=== PATIENT | female | born 1975 | race Caucasian/White ===

== ENCOUNTER 2019-10-29 10:32 | Emergency (ER) | payer OTHER, SELFPAY ==
[2019-10-29 11:00] VITALS: BP 102/69; PULSE 109; RESP 16; TEMP 36.7; O2SAT 95
--- NOTE | 2019-10-29 11:14 | ED.URI ---
HPI - URI/Sore Throat General Chief Complaint: Upper Respiratory Infection Stated Complaint: fever aches Time Seen by Provider: 10/29/19 11:14 Source: patient and RN notes reviewed History of Present Illness HPI Narrative: Patient is a 44-year-old female that presents the urgent care with complaints of fever, body aches, chills, postnasal drainage, congestion, cough without dyspnea. Patient states that started approximately 4 days ago and she has been using ibuprofen, Tylenol, NyQuil, Sudafed. Denies of any vomiting or abdominal pain. No other acute complaints. No acute distress noted. Patient aware the plan of care. Related Data Home Medications Medication Instructions Recorded Confirmed No Home Medications 10/29/19 10/29/19 Allergies Allergy/AdvReac Type Severity Reaction Status Date / Time No Known Allergies Allergy Verified 10/29/19 11:11 Review of Systems Review of Systems: Narrative: CONSTITUTIONAL: Reports a fever and chills EYES: Denies visual changes, redness, or discharge. ENT: Reports of sinus congestion, postnasal drainage CARDIOVASCULAR: Denies chest pain, palpitations, or edema. RESPIRATORY: Reports of cough without dyspnea GASTROINTESTINAL: Denies abdominal pain, nausea, vomiting, or diarrhea. GENITOURINARY: Denies dysuria or hematuria. SKIN: Denies rash or itching. MUSCULOSKELETAL: Denies back pain, joint pain; reports of body aches NEUROLOGIC: Denies headache, numbness, or weakness. All other systems reviewed are negative, except as documented in HPI. PMFSH Comments At the time of my signature, I reviewed and agree with the nursing past medical, surgical, social, and family history. There is no relevant family history pertinent to the patient complaint. Exam Narrative: Exam Narrative: GENERAL: This is a well-nourished, well-developed patient, appears slightly fatigued HEAD: normocephalic, atraumatic. EYES: PERRL. Sclera clear/white. Vision is grossly intact. EARS: External ears normal, auditory canals clear and without drainage, TMs normal without perforation. Hearing grossly intact. NOSE: External nose normal with no obvious nasal discharge, bilateral erythemic nares with clear THROAT: Mucous membranes moist, posterior pharynx clear. Mild postnasal drainage NECK: Neck supple, non-tender without lymphadenopathy CARDIOVASCULAR: Regular rate and rhythm without murmurs, gallops, or rubs. RESPIRATORY: Clear to auscultation. Breath sounds equal bilaterally. No wheezes, rales, or rhonchi. SKIN: warm, intact with no suspicious lesions or rash, good texture and turgor. NEURO: awake, alert, and oriented to person, place and time. There were no obvious focal neurologic abnormalities. EXTREMITIES: No clubbing, cyanosis, or edema. Course Vital Signs Vital signs: Vital Signs Temperature 98.1 F 10/29/19 11:00 Pulse Rate 109 H 10/29/19 11:00 Respiratory Rate 16 10/29/19 11:00 Blood Pressure 102/69 10/29/19 11:00 Pulse Oximetry 95 10/29/19 11:00 Temperature 98.1 F 10/29/19 11:00 Pulse Rate 109 H 10/29/19 11:00 Respiratory Rate 16 10/29/19 11:00 Blood Pressure 102/69 10/29/19 11:00 Pulse Oximetry 95 10/29/19 11:00 Reviewed MDM - URI/Sore Throat MDM Narrative Medical decision making narrative: Reviewed lab results with the patient she is aware that she is positive for influenza A. Treat symptoms with [id number]-[id number] medication such as Robitussin/Delsym for cough, Claritin for allergy-like symptoms, Flonase for nasal congestion, Tylenol/Motrin for fever/body aches. Increase fluids, especially water and rest. Use a humidifier. Be aware of symptoms of dehydration such as lethargy, confusion, increased weakness, dry lips, dry eyes. Follow-up with PCP within 2-5 days or for worsening symptoms or failure to improve. Differential Diagnosis Differential diagnosis: Likely upper respiratory infection, otitis media, sinusitis, viral infection, bronchitis and influenza Lab Data
== END 2019-10-29 11:25 | disposition home or self-care (01) ==
PROVIDERS: Emergency Provider Nurse Practitioner Family; PCP Family Medicine
DX: J10.1 Influenza due to other identified influenza virus with other respiratory manifestations (principal)
CPT/HCPCS: 87804; 99212; G0463

== ENCOUNTER 2019-11-17 13:38 | Outpatient (CLI) | payer OTHER, SELFPAY ==
--- NOTE | ~2019-11-17 | MM_ITS ---
EXAMINATION: MM screening dez BI w tierra HISTORY: Screening mammogram TECHNIQUE: Craniocaudal and mediolateral oblique 3-D tomosynthesis images were obtained and synthetic 2-D images were generated. CAD analysis was submitted and interpreted. COMPARISON: 07/26/2017 bilateral digital screening mammogram BREAST PARENCHYMAL COMPOSITION: The breasts are almost entirely fatty. FINDINGS: There is an approximately 3 x 5.5 mm circumscribed opacity in the mid and lower outer left breast. There is a possible radiolucent hilus. Diagnostic left mammogram and left breast ultrasound e xamination are recommended. Otherwise there is no evidence of suspicious mass, calcification, or architectural distortion to sugg est malignancy in either breast. There has been no other suspicious interval change. IMPRESSION: 3 x 5.5 mm circumscribed opacity in the outer mid to lower left breast; diagnostic left mammogram and left breast ultrasound examination are recommended BI-RADS Category 0: Incomplete: Needs additional imaging evaluation. Reviewed, dictated and finalized at location A. URY PURIFIER IMPRESSION: 3 x 5.5 mm circumscribed opacity in the outer mid to lower left breast; diagnos tic left mammogram and left breast ultrasound examination are recommended BI-RADS Category 0: Incomplete: Needs additional imaging evaluation.
== END 2019-11-17 13:39 | disposition home or self-care (01) ==
LOC: ANHIMG 13:40
PROVIDERS: PCP Family Medicine; Visit Provider Obstetrics & Gynecology
DX: Z12.31 Encounter for screening mammogram for malignant neoplasm of breast (principal); R92.8 Other abnormal and inconclusive findings on diagnostic imaging of breast
CPT/HCPCS: 77063; 77067

== ENCOUNTER 2019-12-09 11:22 | Outpatient (CLI) | payer OTHER, SELFPAY ==
--- NOTE | ~2019-12-09 | MMUS_ITS ---
EXAMINATION: MM diagnostic mammo unilat LT, US breast LT limited HISTORY: 3 x 5.5 mm circumscribed opacity in outer mid to lower left breast on screening mammogram of 11/17/2019 TECHNIQUE: Additional 3-D tomosynthesis images of the left breast were performed and synthetic 2-D im ages were generated. CAD analysis was submitted and interpreted. High resolution targeted left mid ou ter breast ultrasound was performed. COMPARISON: 11/17/2019 bilateral digital screening mammogram FINDINGS: MAMMOGRAPHIC FINDINGS: Again confirmed is an approximately 3 x 5 mm incompletely circumscribed opacity in the outer mid left breast at approximately 3:00 irregular junction of the anterior middle thirds of the left breast. ULTRASOUND: At 3:00 position there is an approximately 3.2 x 4.7 mm mildly irregular in completely circumscribed complex lesion. No internal vascularity or shadowing is noted. Ultrasound-guided biopsy is recommende d. IMPRESSION: 1. Approximately 3 x 5 mm incompletely circumscribed mildly irregular mass at 3:00 2. Ultrasound-guided biopsy is recommended. BI-RADS category 4, suspicious findings. Dr. Aguiar telephoned the report and ultrasound guided biopsy recommendation to Jenni Armijo on 12/09/2019 at 1322 hours. Reviewed, dictated and finalized at location A. IMPRESSION: 1. Approximately 3 x 5 mm incompletely circumscribed mildly irregular mass at 3 :00 2. Ultrasound-guided biopsy is recommended. BI-RADS category 4, suspicious findings. Dr. Aguiar telephoned the report and ultrasound guided biopsy recommendation to Jenni Quevedo on 12/09/2019 at 1322 hours.
== END 2019-12-09 11:23 | disposition home or self-care (01) ==
LOC: ANHIMG 11:25
PROVIDERS: PCP Family Medicine; Visit Provider Obstetrics & Gynecology
DX: R92.8 Other abnormal and inconclusive findings on diagnostic imaging of breast (principal)
CPT/HCPCS: 76642; 77065

== ENCOUNTER 2020-04-19 09:44 | Outpatient (CLI) | payer OTHER, SELFPAY ==
[2020-04-19 11:40] LABS: Iron 97 ug/dL (37-170)
[2020-04-19 11:53] LABS: Percent Iron Saturation 30 % (20-50)
== END 2020-04-19 09:45 | disposition home or self-care (01) ==
LOC: ANHLAB 09:49
PROVIDERS: PCP Family Medicine; Visit Provider Internal Medicine Hematology & Oncology
DX: D50.0 Iron deficiency anemia secondary to blood loss (chronic) (principal)
CPT/HCPCS: 36415; 82728; 83540; 83550

== ENCOUNTER 2020-12-22 15:26 | Outpatient (CLI) | payer OTHER, SELFPAY ==
--- NOTE | ~2020-12-22 | MM_ITS ---
EXAMINATION: MM screening dez BI w tierra HISTORY: Screening mammogram TECHNIQUE: Craniocaudal and mediolateral oblique 3-D tomosynthesis images were obtained and synthetic 2-D images were generated. CAD analysis was submitted and interpreted. COMPARISON: 12/09/2019 diagnostic left mammogram and limited left breast ultrasound 11/17/2019 bilateral digital screening mammogram BREAST PARENCHYMAL COMPOSITION: There are scattered areas of fibroglandular density. FINDINGS: There is a biopsy marker in the left; history of prior left benign breast biopsy. There is no evidence of suspicious mass, calcification, or architectural distortion to suggest malignancy in e ither breast. There has been no suspicious interval change. IMPRESSION: 1. No mammographic evidence of malignancy. 2. Recommend routine screening mammography in one year. BI-RADS Category 1: Negative Reviewed, dictated and finalized at location A.
== END 2020-12-22 15:27 | disposition home or self-care (01) ==
LOC: ANHIMG 15:29
PROVIDERS: PCP Family Medicine; Visit Provider Obstetrics & Gynecology
DX: Z12.31 Encounter for screening mammogram for malignant neoplasm of breast (principal)
CPT/HCPCS: 77063; 77067

== ENCOUNTER → 2021-08-03 02:22 | Outpatient (CLI) | payer OTHER, SELFPAY ==
[2021-08-03 18:47] LABS: SARS-CoV-2 RNA PCR Negative
== END ==
PROVIDERS: PCP Family Medicine; Visit Provider Internal Medicine Gastroenterology
DX: Z01.812 Encounter for preprocedural laboratory examination (principal); Z20.822 Contact with and (suspected) exposure to COVID-19
CPT/HCPCS: C9803; U0003; U0005

== ENCOUNTER 2021-08-05 01:56 | Day surgery (SDC) | payer OTHER, SELFPAY ==
[2021-07-25 15:06] VITALS: BMI 24.7
--- NOTE | 2021-08-04 11:54 | PM.HPGS ---
History of Present Illness History of Present Illness Consent: Risks, benefits, and alternatives have been discussed and questions answered. Patient agrees to proceed with procedure. Chief complaint: GERD, neoplasm screening Narrative: Jennifer Lynch is a 46 year old female referred for colon cancer screening and investigation of persistent acid reflux symptoms. Five years ago she was being investigated for iron deficiency anemia. She was told that she had reflux and needed to be on medication but she never did take it because she has concerns about anti reflux medications causing a Alzheimer's disease. Her main symptoms that she gets heartburn. She denies dysphagia weight loss or vomiting. She has irregular bowel movements. Sometimes they are loose and sometimes they are hard or difficult to expel. When she had a colonoscopy 5 years ago she had a polyp removed Review of Systems Review of Systems: All systems reviewed & are unremarkable except as noted in HPI and below [facility] Social History Social History Smoking status: Current every day smoker Tobacco type: cigarettes Alcohol intake: current Drinks per week: 1 Substance use: never Substance use type: does not use Living arrangements: with family Spiritual care concerns: No Meds Home Medications and Allergies Home Medications Medication Instructions Recorded Confirmed Type No Home Medications 10/29/19 08/05/21 History Allergies Allergy/AdvReac Type Severity Reaction Status Date / Time No Known Allergies Allergy Verified 08/05/21 06:49 Exam Const: General: alert Orientation/consciousness: patient oriented x3 Resp: Auscultation: clear to auscultation bilaterally Cardio: Rhythm: regular rhythm GI: GI Palp: Yes Soft to palpation and No Tenderness to palpation present (GI) Neuro: General: patient oriented x3 Assessment and Plan Assessment and plan (1) GERD (gastroesophageal reflux disease): Code(s): K21.9 - Gastro-esophageal reflux disease without esophagitis Status: Acute Assessment and Plan: EGD with possible biopsy or dilatation or cautery. (2) Colon cancer screening: Code(s): Z12.11 - Encounter for screening for malignant neoplasm of colon Status: Acute Assessment and Plan: Colonoscopy with possible biopsy or polypectomy or cautery or injection of substances.
[2021-08-05 06:49] VITALS: BP 131/85; PULSE 74; RESP 16; TEMP 36.1; O2SAT 98; BMI 24.5
[2021-08-05] MEDS: LACTATED RINGERS 1,000 ML 150 ML IV CONT (06:53)
--- NOTE | 2021-08-05 07:43 | WPDANESEPPF ---
Anes - Initial Pre Proc Eval Procedure: Operation Date: 08/05/21 08:00 Proposed Procedures p Esophagogastroduodenoscopy & Screening Colonoscopy - José Griffin MD Date/Time: 08/05/21 07:43 Surgeon: José Griffin MD Pre Op Diagnosis: GERD, neoplasm screening Patient Data Age: 46 Gender: F Height: 1.57 m Weight: 61 kg Last Vital Signs Temp 97 F L 08/05/21 06:49 Pulse 74 08/05/21 06:49 Resp 16 08/05/21 06:49 BP 131/85 08/05/21 06:49 Pulse Ox 98 08/05/21 06:49 Allergies Allergy/AdvReac Type Severity Reaction Status Date / Time No Known Allergies Allergy Verified 08/05/21 06:49 Home Medications Medication Instructions Recorded Confirmed Type No Home Medications 10/29/19 08/05/21 History Patient hx anesthesia problems: none Family hx anesthesia problems: none Results Review: All pre-operative results and documents have been reviewed as part of the pre-operative evaluation. [facility] Past Medical History Medical History (Updated 08/05/21 @ 07:40 by Atif Byrd MD) Anemia Anxiety Asthma Depression Social History Social History Smoking status: Current every day smoker Tobacco type: cigarettes Alcohol intake: current Drinks per week: 1 Substance use: never Substance use type: does not use Living arrangements: with family Spiritual care concerns: No Anes - Eval Final PreProcedure Day of Procedure 08/05/21 07:43 Patient weight: normal Heart: regular rate and rhythm Lungs: clear to auscultation Airway: Mallampati scale class II Neurological: alert and oriented Last oral intake: >/= 8 hours ASA classification: II Emergent: no Anesthetic plan: proceed Anesthesia type and monitoring: general GIVS and standard monitoring Results Review: All pre-operative results and documents have been reviewed as part of the pre-operative evaluation. Informed Consent: The patient's anesthetic plan and its attendant risks and benefits were discussed with the patient/family/POA. Questions were solicited and answers provided to the satisfaction of the patient/family/POA.
--- NOTE | 2021-08-05 08:13 | SUR.OPER ---
EGD ended at 804. Colonoscopy started at 811.
[2021-08-05] MEDS: SIMETHICONE ORAL SUSPENSION 20 MG/0.3 ML 30 ML BOTTLE 0.6 ML IRRIGATION (08:16)
[2021-08-05 08:27] VITALS: BP 93/66; PULSE 73; RESP 19; O2SAT 100
[2021-08-05 08:37] VITALS: BP 108/74; PULSE 68; RESP 17; O2SAT 97
[2021-08-05 08:47] VITALS: BP 124/70; PULSE 62; RESP 21; O2SAT 100
== END 2021-08-05 09:00 | disposition home or self-care (01) ==
PROVIDERS: PCP Family Medicine; Visit Provider Internal Medicine Gastroenterology
PROC: 0DJ08ZZ Inspection of Upper Intestinal Tract, Via Natural or Artificial Opening Endoscopic (ICD-10-PCS; CPT 43235; principal; 2021-08-05 08:00)
DX: Z12.11 Encounter for screening for malignant neoplasm of colon (principal); K21.9 Gastro-esophageal reflux disease without esophagitis; D64.9 Anemia, unspecified; F41.8 Other specified anxiety disorders; J45.909 Unspecified asthma, uncomplicated; F17.210 Nicotine dependence, cigarettes, uncomplicated
CPT/HCPCS: 43239; 45378; 87081; 88305; J2704; J7120

== ENCOUNTER 2022-04-11 09:37 | Outpatient (CLI) | payer OTHER, SELFPAY ==
--- NOTE | ~2022-04-11 | MM_ITS ---
EXAMINATION: MM screening dez BI w tierra HISTORY: Screening mammogram TECHNIQUE: Craniocaudal and mediolateral oblique 3-D tomosynthesis images were obtained and synthetic 2-D images were generated. CAD analysis was submitted and interpreted. COMPARISON: 12/22/2020 bilateral screening mammogram 12/05/2019 diagnostic left mammogram and limited left breast ultrasound 11/17/2019, 07/26/2017 bilateral screening mammogram examinations BREAST PARENCHYMAL COMPOSITION: There are scattered areas of fibroglandular density. A FINDINGS: There are 2 biopsy markers on the left; history of 2 prior benign left breast biopsies. The re is no evidence of suspicious mass, calcification, or architectural distortion to suggest malignanc y in either breast. There has been no suspicious interval change. IMPRESSION: 1. No mammographic evidence of malignancy. 2. Recommend routine screening mammography in one year. BI-RADS Category 1: Negative Reviewed, dictated and finalized at location A.
== END 2022-04-11 09:38 | disposition home or self-care (01) ==
PROVIDERS: PCP Family Medicine; Visit Provider Obstetrics & Gynecology
DX: Z12.31 Encounter for screening mammogram for malignant neoplasm of breast (principal)
CPT/HCPCS: 77063; 77067

== ENCOUNTER 2022-08-08 08:29 | Outpatient (CLI) | payer OTHER, SELFPAY ==
--- NOTE | ~2022-08-08 | XR_ITS ---
EXAMINATION: XR UGIAC w barium swallow DATE: 08/08/2022 09:16 INDICATION: Gastroesophageal reflux disease without esophagitis. TECHNIQUE: The patient drank thick barium, gas-producing crystals, and thin barium. A total of 1603 f luoroscopic images of the hypopharynx, esophagus, stomach and proximal small bowel were obtained. Flu oroscopy exposure time was 2.7 minutes. COMPARISON: None. FINDINGS: There is mass effect with nodular mucosal contour at the anterior margin of the vallecula likely rela jaz to lingual tonsils. The pharynx is otherwise normal. The esophagus is normal without mass or stri cture. There is decreased esophageal motility with significant weakening of the primary peristaltic w ave in the upper thoracic esophagus resulting in break up of the contrast bolus. There is poor cleara nce of contrast from esophagus with secondary peristalsis resulting in some pooling of contrast in th e esophagus in the prone position. There is no hiatal hernia. There was no gastroesophageal reflux wi th provocative maneuvers. The stomach and proximal small bowel are normal. IMPRESSION: 1. Mass effect with nodular mucosal contour at the anterior margin of the vallecula which given locat ion likely represents the lingual tonsils. Could consider laryngoscopy for direct visualization. 2. Mild esophageal dysmotility with weakening and poor progression of primary and secondary peristals is beyond the proximal thoracic esophagus. Reviewed, dictated and finalized at location A. DIPPER IMPRESSION: 1. Mass effect with nodular mucosal contour at the anterior margin of the roy cula which given location likely represents the lingual tonsils. Could consider laryngoscopy for direct visualization. 2. Mild esophageal dysmotility with weakening and poor progression of primary a nd secondary peristalsis beyond the proximal thoracic esophagus.
== END 2022-08-08 08:30 | disposition home or self-care (01) ==
LOC: ANHIMG 08:32
PROVIDERS: PCP Family Medicine; Visit Provider Nurse Practitioner Family
DX: K21.9 Gastro-esophageal reflux disease without esophagitis (principal)
CPT/HCPCS: 74246

== ENCOUNTER 2023-03-30 08:52 | Outpatient (CLI) | payer OTHER, SELFPAY ==
--- NOTE | ~2023-03-30 | US_ITS ---
Pelvic ultrasound. Clinical History: Pelvic pain Technique: Realtime transabdominal and transvaginal scanning of the pelvis was performed. Color flow Doppler and Doppler spectral analysis were performed. Findings: The uterus is anteverted. The endometrial stripe is poorly delineated. No focal mass is id entified. The right ovary measures 2.3 x 1.4 x 1.1 cm. No significant right ovarian or adnexal mass is seen. The left ovary measures 2.2 x 1.8 x 1.1 cm. No significant left ovarian or adnexal mass is seen. There is no evidence of free fluid in the cul de sac. Impression: No significant abnormality seen. Endometrial stripe is poorly delineated. Reviewed, dictated and finalized at [facility]. Impression: No significant abnormality seen. Endometrial stripe is poorly delineated.
== END 2023-03-30 08:53 | disposition home or self-care (01) ==
PROVIDERS: PCP Family Medicine; Visit Provider Obstetrics & Gynecology
DX: R10.2 Pelvic and perineal pain (principal)
CPT/HCPCS: 76830; 76856

== ENCOUNTER 2023-04-13 10:28 | Outpatient (CLI) | payer OTHER, SELFPAY ==
--- NOTE | ~2023-04-13 | MM_ITS ---
EXAMINATION: MM screening [facility] BI w tierra HISTORY: Screening mammogram TECHNIQUE: Craniocaudal and mediolateral oblique 3-D tomosynthesis images were obtained and synthetic 2-D images were generated. CAD analysis was submitted and interpreted. COMPARISON: 04/11/2022, 12/22/2020, 12/09/2019, 11/17/2019 BREAST PARENCHYMAL COMPOSITION: There are scattered areas of fibroglandular density. FINDINGS: No suspicious mass, calcification, or architectural distortion are identified in either wade ast to suggest malignancy. There has been no suspicious interval change. IMPRESSION: 1. No mammographic evidence of malignancy. 2. Recommend routine screening mammography in one year. BI-RADS Category 1: Negative Reviewed, dictated and finalized at location A.
== END 2023-04-13 10:29 | disposition home or self-care (01) ==
PROVIDERS: PCP Family Medicine; Visit Provider Obstetrics & Gynecology
DX: Z12.31 Encounter for screening mammogram for malignant neoplasm of breast (principal)
CPT/HCPCS: 77063; 77067

== ENCOUNTER 2023-10-09 12:42 | Outpatient (CLI) | payer OTHER, SELFPAY ==
[2023-10-09 13:16] LABS: Eosinophils Absolute Auto 0.2 K/mm3 (0-0.3); Eosinophils Percent Auto 4.8 % (0-4.4); Hemoglobin 12.7 g/dL (12.0-15.0); Lymphocytes Absolute Auto 1.45 K/mm3 (0.9-3.2); Lymphocytes Percent Auto 34.9 % (18.3-44.2); Mean Corpuscular HGB Conc 33.4 g/dl (32-36); Mean Corpuscular Hemoglobin 29.5 pg (26-34); Mean Corpuscular Volume 88.2 fl (80-100); Mean Platelet Volume 9.7 fl (7.4-10.4); Monocytes Absolute Auto 0.4 K/mm3 (0.1-0.6); Monocytes Percent Auto 9.4 % (2.6-8.5); Neutrophils Absolute Auto 2.1 K/mm3 (1.3-6.7); Neutrophils Percent Auto 49.9 % (45.5-73.1); Platelet Count Result 189 k/mm3 (150-375); Red Blood Count 4.31 M/mm3 (4.2-5.4); Red Cell Distribution Width 12.4 % (11.5-14.5); White Blood Count 4.2 K/mm3 (4.5-10.0)
== END 2023-10-09 12:43 | disposition home or self-care (01) ==
PROVIDERS: PCP Family Medicine; Referring Provider Internal Medicine Hematology & Oncology; Visit Provider Obstetrics & Gynecology
DX: N85.2 Hypertrophy of uterus (principal); N93.9 Abnormal uterine and vaginal bleeding, unspecified
CPT/HCPCS: 36415; 85025; 86850; 86900; 86901

== ENCOUNTER 2023-10-23 15:04 | Outpatient (CLI) | payer OTHER, SELFPAY ==
[2023-10-23 15:20] LABS: Basophils Percent Auto 0.7 % (0.2-1.2); Eosinophils Absolute Auto 0.1 K/mm3 (0-0.3); Eosinophils Percent Auto 2.3 % (0-4.4); Hematocrit 37.5 % (37.0-47.0); Hemoglobin 12.7 g/dL (12.0-15.0); Immature Granulocyte Absolute 0.01 K/mm3 (0.00-0.031); Immature Granulocyte Percent A 0.2 % (0-0.5); Lymphocytes Absolute Auto 1.31 K/mm3 (0.9-3.2); Lymphocytes Percent Auto 23.6 % (18.3-44.2); Mean Corpuscular HGB Conc 33.9 g/dl (32-36); Mean Corpuscular Hemoglobin 29.9 pg (26-34); Mean Corpuscular Volume 88.2 fl (80-100); Mean Platelet Volume 9.1 fl (7.4-10.4); Monocytes Absolute Auto 0.4 K/mm3 (0.1-0.6); Neutrophils Absolute Auto 3.7 K/mm3 (1.3-6.7); Neutrophils Percent Auto 66.2 % (45.5-73.1); Platelet Count Result 229 k/mm3 (150-375); Red Blood Count 4.25 M/mm3 (4.2-5.4); Red Cell Distribution Width 12.2 % (11.5-14.5); White Blood Count 5.5 K/mm3 (4.5-10.0)
[2023-10-23 16:27] LABS: Iron 91 ug/dL (37-170)
[2023-10-23 16:29] LABS: Alanine Aminotransferase 16 U/L (6-35); Albumin Level 4.2 g/dL (3.5-5.1); Alkaline Phosphatase 80 U/L (38-126); Anion Gap 4 mmol/L (8-16); Aspartate Amino Transferase 23 U/L (14-36); Bilirubin,Total 1.1 mg/dL (0.2-1.3); Blood Urea Nitrogen 17 mg/dL (7-17); Calcium 8.9 mg/dL (8.4-10.2); Carbon Dioxide 30 mmol/L (22-30); Chloride 103 mmol/L (98-107); Estimated Glomerular Filt Rate > 60; Glucose 94 mg/dL (65-110); Sodium 137 mmol/L (137-145)
[2023-10-23 16:41] LABS: Percent Iron Saturation 25 % (20-50)
[2023-10-23 17:02] LABS: Ferritin 8.61 ng/mL (6.24-137)
[2023-10-23 17:33] LABS: Folic Acid 17.9 ng/mL (2.76->20)
[2023-10-26 09:57] LABS: Methylmalonic Acid 544 nmol/L (87-318)
[2023-10-29 17:17] LABS: Soluble Transferrin Receptor 1.21 mg/L (0.76-1.76)
== END 2023-10-23 15:05 | disposition home or self-care (01) ==
LOC: ANHLAB 15:06
PROVIDERS: Nurse Practitioner Family; PCP Family Medicine; Visit Provider Internal Medicine Hematology & Oncology
DX: D50.0 Iron deficiency anemia secondary to blood loss (chronic) (principal)
CPT/HCPCS: 36415; 80053; 82607; 82728; 82746; 83540; 83550; 83921; 84238; 85025

== ENCOUNTER 2024-03-28 17:28 | Emergency (ER) | payer OTHER, SELFPAY ==
[2024-03-28 17:37] VITALS: BP 124/85; PULSE 97; RESP 16; TEMP 36.9; O2SAT 97
[2024-03-28 17:38] VITALS: BP 124/85; PULSE 97; RESP 16; TEMP 36.9; O2SAT 97
--- NOTE | 2024-03-28 17:40 | ED.URI ---
HPI - URI/Sore Throat General Chief Complaint: Upper Respiratory Infection Stated Complaint: Sore Throat Time Seen by Provider: 03/28/24 17:40 Source: patient Mode of arrival: ambulatory Limitations: no limitations History of Present Illness HPI Narrative: 48-year-old female presents with complaint of sore throat, nasal congestion, cough, fatigue and body aches for 2 days. Patient states she recently went on a trip with family and her sister and sister's daughter both positive for strep throat. Patient states she had antibiotic at home and has taken 2 doses of amoxicillin. All systems reviewed and negative except as noted above. Related Data Allergies Allergy/AdvReac Type Severity Reaction Status Date / Time No Known Allergies Allergy Verified 12/04/23 11:03 Review of Systems Review of Systems: CONSTITUTIONAL: Denies fever, chills, or sweats. Reports fatigue. EYES: Denies visual changes, redness, or discharge. ENT: Reports rhinorrhea, congestion, sore throat. Denies otalgia. CARDIOVASCULAR: Denies chest pain, palpitations, or edema. RESPIRATORY: Denies cough or dyspnea. GASTROINTESTINAL: Denies abdominal pain, nausea, vomiting, or diarrhea. GENITOURINARY: Denies dysuria or hematuria. SKIN: Denies rash or itching. MUSCULOSKELETAL: Denies back pain, joint pain. Reports myalgia. NEUROLOGIC: Reports headache. Denies numbness, or weakness. PSYCHIATRIC: Denies anxiety or depression. All other systems reviewed are negative, except as documented in HPI. [facility] Past Medical History Medical History (Updated 03/28/24 @ 18:16 by Claudia Hooker NP) ADHD (attention deficit hyperactivity disorder) Anemia infusions done Anxiety Asthma Depression Dysuria Encounter for screening examination for sexually transmitted disease Encounter for screening examination for sexually transmitted disease HSV-1 infection HSV-2 infection rx meds prn Screening mammogram, encounter for Screening mammogram, encounter for Thyroid nodule Vaginitis Surgical History Surgical History H/O LEEP 199710/29/13 History of endometrial ablation 07/03/19 hscope d&c and ablation History of laparoscopy 07/03/19 pelvic pain History of tonsillectomy Family History Family History Mother Hypothyroidism Intracranial aneurysm Daughter Hypothyroidism Pulmonic valve stenosis Social History Social History (Updated 12/04/23 @ 11:06 by Yamila Carmona [facility]) Smoking status: Never smoker Tobacco type: cigarettes Second hand tobacco smoke exposure: No Smoking end date: 10/18/22 Alcohol intake: current Drinks per week: 1 Alcohol use details: very rarely Substance use: current Substance use type: does not use Other substance usage details: CBD for pain Do You Feel Safe in your Home?: Yes Lack of Transportation: No Lack of Food: Never True Current Housing: I Have Housing Concerned About Future Housing: No Difficulty Paying Gas/Electric Bills: No Difficulty Paying for Meds: No Currently Unemployed: No Education: High School Diploma/GED Difficulty w/ Childcare or Family Care: No Living arrangements: alone Additional living arrangements comments: lives with daughter Occupation/Education: occupation Additional occupation/education comments: 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 There is no relevant family history pertinent to the presenting complaint. Exam Narrative: GENERAL: This is a well-nourished, well-developed patient, in no apparent distress.
[2024-03-28 18:09] LABS: EDINFLUASCREEN Negative; EDINFLUBSCREEN Negative; EDSTREPNEGPOS1 Presumptive Negative
== END 2024-03-28 18:22 | disposition home or self-care (01) ==
PROVIDERS: Emergency Provider Nurse Practitioner Family; PCP Nurse Practitioner Family
DX: J02.9 Acute pharyngitis, unspecified (principal); Z20.822 Contact with and (suspected) exposure to COVID-19; Z87.891 Personal history of nicotine dependence; J45.909 Unspecified asthma, uncomplicated
CPT/HCPCS: 87081; 87426; 87804; 87880; 99213; G0463

== ENCOUNTER 2024-05-14 15:27 | Outpatient (CLI) | payer OTHER, SELFPAY ==
--- NOTE | ~2024-05-14 | MM_ITS ---
EXAMINATION: MM screening dez BI w tierra HISTORY: Screening TECHNIQUE: Craniocaudal and mediolateral oblique 3-D tomosynthesis images were obtained and synthetic 2-D images were generated. CAD analysis was submitted and interpreted. COMPARISON: Comparison to multiple prior studies sequentially, with oldest reviewed study dated 05/2017. BREAST PARENCHYMAL COMPOSITION: Not Dense: The breasts are almost entirely fatty. FINDINGS: There is no evidence of suspicious mass, calcification, or architectural distortion to sugg est malignancy in either breast. There has been no suspicious interval change. IMPRESSION: 1. No mammographic evidence of malignancy. 2. Recommend routine screening mammography in one year. BI-RADS Category 1: Negative Reviewed, dictated and finalized at location B.
== END 2024-05-14 15:28 | disposition home or self-care (01) ==
LOC: ANHIMG 15:28
PROVIDERS: Visit Provider Obstetrics & Gynecology
DX: Z12.31 Encounter for screening mammogram for malignant neoplasm of breast (principal)
CPT/HCPCS: 77063; 77067

== ENCOUNTER 2025-05-26 16:24 | Outpatient (CLI) | payer OTHER, SELFPAY ==
--- NOTE | ~2025-05-26 | MM_ITS ---
EXAMINATION: MM screening dez BI w tierra HISTORY: Screening TECHNIQUE: Craniocaudal and mediolateral oblique 3-D tomosynthesis images were obtained and synthetic 2-D images were generated. CAD analysis was submitted and interpreted. COMPARISON: Comparison to multiple prior studies sequentially, with oldest reviewed study dated , 11/17/2019 BREAST PARENCHYMAL COMPOSITION: There are scattered areas of fibroglandular density. FINDINGS: There is no evidence of suspicious mass, calcification, or architectural distortion to suggest malignancy in either breast. IMPRESSION: 1. No mammographic evidence of malignancy. 2. Recommend routine screening mammography in one year. BI-RADS Category 1: Negative Reviewed, dictated and finalized at location C.
--- OUTSIDE RECORDS SUMMARY | 2025-05-26 15:00 | XMS_ITS | Encounter Summary ---
Author Organization [facility] Address [address] [place] [address] Phone Care Team Providers Care Soft Crab Shedder Name Role Phone Jemal Krueger DO Unavailable [phone] Roberta Kennedy DIGITAL CAMPAIGN MANAGER, FIELD TRAINING AGENT Unavailable Kecia Burkett DIGITAL CAMPAIGN MANAGER, FIELD TRAINING AGENT Unavailable Jonh Carr MD Unavailable Jonh Carr MD Unavailable Desirae Wolf MD Primary Care Provider [phone] Reason for Visit * Reason Comments Thyroid Problem Encounter Details Date Type Department Care Team (Late st Contact Info) Description 05/26/2025 3:00 PM CDT Office Visit [facility] - Endocrinology [facility] [address] [place] [address] Jonh Carr MD [address] [phone] Nodular goiter (Primary Dx); 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 Discharge Disposition: Discharged to home or Selfcare Social History Tobacco Use Types Packs/Day Years Used Date Smoking Tobacco: Former Cigarettes Q uit: 03/08/2000 Smokeless Tobacco: Never Alcohol Use Standard Drinks/Week Comments Yes 0 (1 standard drink = 0.6 oz pur e alcohol) Occassionally Comments No Sex and Gender Information Value Date Recorded Sex Assigned at Not on file Legal Sex Female 9:49 PM CDT Gender Identity Not on file Sexual Orientation Not on file 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 file Not on file Not on file documented as of this encounter Last Filed Vital Signs Vital Sign Reading Time Taken Comments Blood Pressure 120/76 05/26/2025 2:49 PM CDT Pulse 88 05/26/2025 2:49 PM CDT Temperature 36.3 C (97.4 F) 05/26/2025 2:49 PM CDT Respiratory Rate 19 05/26/2025 2:49 PM CDT Oxygen Saturation 94% 05/26/2025 2:49 PM CDT Inhaled Oxygen Concentration - - Weight 57.1 kg (125 lb 12.8 oz) 05/26/2025 2:49 PM CDT Height - - Body Mass Index 23.01 06/01/2023 10:15 AM CDT documented in this encounter Patient Instructions * Patient Instructions* Jonh Carr MD - 05/26/2025 3:00 PM CDT Please check thyroid function test Arrangement will be made for thyroid ultrasound in November or December 2025 Additional steps in management to be determined once result is available for review Follow up visit in December 2025 documented in this encounter Plan of Treatment Upcoming Encounters Date Type Department Care Team (Late st Contact Info) Description 12/24/2025 3:00 PM CDT Office Visit [facility] - Endocrinology - [place] [address] [place] [address] Jonh Carr MD [address] [address] Scheduled Orders Name Type Priority Associated Diagnoses Orde r Schedule THYROID STIMULATING HORMONE (TSH) Lab Routine Nodular goiter 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 Expected: 05/26/2025, Expires: 11/23/2025 THYROXINE (T4) FREE Lab Routine Nodular goiter 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 Expected: 05/26/2025, Expires: 11/23/2025 documented as of this encounter Visit Diagnoses Diagnosis Nodular goiter- Primary Unspecified nontoxic 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 documented in this encounter Care Teams Soft Crab Shedder Relationship Specialty Start Date End Date Desirae Wolf MD [facility] [place] [address] PCP - General Slide Fasteners Inspector 05/01/22 Jemal Krueger DO Gastroenterology 03/23/16 Roberta Mcmullen APRN, FIELD TRAINING AGENT Nurse Practitioner Advanced Practice Nurse 03/23/16 Kecia Burkett APRN, FIELD TRAINING AGENT Nurse Practitioner Advanced Practice Nurse 03/23/16 Jonh Carr MD [address] [address] [address] Consulting Physician Internal Medicine 06/30/16 Jonh Carr MD [address] [address] [phone] Consulting Physician Endocrinology 03/27/22 documented as of this encounter
--- OUTSIDE RECORDS SUMMARY | 2025-05-26 17:18 | XMS_ITS | Clinical Summary ---
Author Organization [facility] Address [address] [place] [address] Phone Care Team Providers Care Shrimp Header Name Role Phone Jemal Krueger DO Unavailable [phone] Roberta Mcmullen DIGITAL MEDIA SPECIALIST, SOFTWARE TEST SPECIALIST Unavailable [phone] Kecia Burkett DIGITAL MEDIA SPECIALIST, SOFTWARE TEST SPECIALIST Unavailable Jonh Carr MD Unavailable Jonh Carr MD Unavailable Desirae Wolf MD Primary Care Provider [phone] Allergies No known active allergies Medications ferrous sulfate 325 (65 Fe) MG Tablet Take 325 mg by mouth. 07/23/20 18 Active Escitalopram Oxalate 5 MG Tablet TK 1 T PO QD 3 11/12/19 19 Active acetaminophen (TYLENOL) 500 MG Tablet Take 500-1,000 mg by mouth. 12/04/19 20 Active albuterol (PROVENTIL, VENTOLIN) (2.5 MG/3ML) 0.083% Nebulizer Soln albuterol sulfate 2.5 mg/3 mL (0.083 %) solution for nebulization Active cyclobenzaprin e (FLEXERIL) 10 MG Tablet cyclobenzaprine 10 mg tablet Active ibuprofen (MOTRIN) 600 MG Tablet Take 600 mg by mouth. 12/04/19 20 Active ondansetron (ZOFRAN) 8 MG Tablet 01/26/20 23 Active Spacer/Aero-Ho lding Chambers (AEROCHAMBER PLUS-FLOW SIGNAL) Misc Use as instructed 03/03/20 21 Active omeprazole (PriLOSEC) 40 MG CAPSULE DELAYED RELEASE omeprazole 40 mg capsule,delayed release Active levothyroxine (SYNTHROID) 25 MCG Tablet Take 1 Tablet by mouth daily. 90 Tablet 1 04/16/20 24 Active pantoprazole (Protonix) 40 MG Pack 40 mg by Per NG tube route daily. Active DULoxetine HCl (CYMBALTA) [address] Particles Take 40 mg by mouth. 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 Discharge Disposition: Discharged to home or Selfcare 05/26/2025 Travel from Last 3 Months Family History Medical History Relation Name Comments Aneurysm Mother cerebral Thyroid Disease Mother Relation Name Status Comments Father Alive Mother Alive Social History Tobacco Use Types Packs/Day Years Used Date Smoking Tobacco: Former Cigarettes Q uit: 03/08/2000 Smokeless Tobacco: Never Tobacco Cessation:Counseling Given: Not Answered Alcohol Use Standard Drinks/Week Comments Yes 0 [...] file Not on file Not on file Last Filed Vital Signs Vital Sign Reading Time Taken Comments Blood Pressure 120/76 05/26/2025 2:49 PM CDT Pulse 88 05/26/2025 2:49 PM CDT Temperature 36.3 C (97.4 F) 05/26/2025 2:49 PM CDT Respiratory Rate 19 05/26/2025 2:49 PM CDT Oxygen Saturation 94% 05/26/2025 2:49 PM CDT Inhaled Oxygen Concentration - - Weight 57.1 kg (125 lb 12.8 oz) 05/26/2025 2:49 PM CDT Height 157.5 cm (5' 2) 06/01/2023 10:1 5 AM CDT Body Mass Index 23.01 06/01/2023 10:15 AM CDT Plan of Treatment Upcoming Encounters Date Type Department Care Team (Late st Contact Info) Description 12/24/2025 3:00 PM CDT Office Visit [facility] - Endocrinology - [place] [address] [place] [address] Jonh Carr MD [address] [phone] Health Maintenance Due Date Last Done Comments Hepatitis C Virus (HCV) Screening 1974 Hepatitis B Immunization (1 of 3 - 19+ 3-dose series) 1993 Pap Smear 1995 Cervical Cancer Screening (CCS) 2004 HPV/Cotest 2004 Cologuard 2019 Immunochemical Fecal Occult Blood 2019 Mammogram 12/16/2020 12/17/2019, 09/19, 08/22/2016, Additional history exists Colonoscopy 03/22/2021 03/22/2016 Colorectal Cancer Screening 03/22/2021 Zoster Immunization (1 of 2) 2024 Influenza Immunization (#1) 2025 SARS-COV-2 Immunization ( season) 2025 Respiratory Syncytial Virus (RSV) Immunization (Adult) (1 - 1-dose 75+ series) 2049 Discussion re Starting/Frequency of Mammograms Discontinued 10/16/2018, 08/22/2016, 07/27/2015 DTaP/Tdap/Td Immunization Discontinued 05/27/2024 TdaP Immunization Completed 05/27/2024 Meningococcal Immunization (ACWY) Aged Out 06/26/2024 No longer eligible based on patient's age to complete this topic Pneumococcal Immunization (50+ years) Completed 06/26/2024 Pneumococcal Immunization Combined Discontinued 06/26/2024 Human Papillomavirus (HPV) Immunization Aged Out No longer eligible based on patient's age to complete this topic Rotavirus Immunization Aged Out No lo nger eligible based on patient's age to complete this topic Procedures Procedure Name Priority Date/Time Associated Diagnosis Comments ROWDY SCREENING BILATERAL DIGITAL W CAD W GEREMIAS Routine 10/16/2018 2:55 PM PAYROLL TAX ANALYST Encounter for screening mammogram for malignant neoplasm of breast from Last 3 Months or Most Recently Relevant to Health Maintenance Results * ROWDY SCREENING BILATERAL DIGITAL W CAD W GEREMIAS (10/16/2018 2:55 PM PAYROLL TAX ANALYST) Anatomical Region Laterality Modality breast Bilateral Mammography 10/16/2018 3:09 PM PAYROLL TAX ANALYST Narrative 10/21/2018 2:08 PM PAYROLL TAX ANALYST - ROWDY SCREENING BILATERAL DIGITAL W CAD W GEREMIAS BILATERAL DIGITAL SCREENING MAMMOGRAM 3D/2D WITH CAD WITH MEDIOLATERAL OBLIQUE CRANIOCAUDAL: 10/16/2018 The study was acquired using digital technology and interpreted from soft copy. Current study was also evaluated with ICAD version 7.2. CLINICAL: Routine screening. Patient has no complaints. No personal history of cancer. No family history of breast cancer. COMPARISONS: Comparison is made to exams dated: 08/22/2016, 07/27/2015 [facility], and 07/26/2017 [facility]. BREAST TISSUE:There are scattered fibroglandular densities in both breasts. FINDINGS: There is a biopsy clip in the left breast. No significant masses, calcifications, or other findings are seen in either breast. There has been no significant interval change. IMPRESSION: BI-RAD 1 NEGATIVE There is no mammographic evidence of malignancy. A 1 year screening mammogram is recommended. The patient has been or will be contacted. The patient will be entered into a reminder system with a target due date of 1 year for her next screening exam. Electronically signed by: Fabiola selby/hood:10/21/2018 11:34:36 Qualitative Researcher: Trinity Weathers (R), [facility] letter sent: Normal Exam Reading location: [place] BI-RADS: 1 Negative Procedure Note Fabiola Tamayo MD - 10/21/2018 - ROWDY SCREENING BILATERAL DIGITAL W CAD W GEREMIAS BILATERAL DIGITAL SCREENING MAMMOGRAM 3D/2D WITH CAD WITH MEDIOLATERAL OBLIQUE CRANIOCAUDAL: 10/16/2018 The study was acquired using digital technology and interpreted from soft copy. Current study was also evaluated with ICAD version 7.2. CLINICAL: Routine screening. Patient has no complaints. No personal history of cancer. No family history of breast cancer. COMPARISONS: Comparison is made to exams dated: 08/22/2016, 07/27/2015 [facility], and 07/26/2017 [facility]. BREAST TISSUE:There are scattered fibroglandular densities in both breasts. FINDINGS: There is a biopsy clip in the left breast. No significant masses, calcifications, or other findings are seen in either breast. There has been no significant interval change. IMPRESSION: BI-RAD 1 NEGATIVE There is no mammographic evidence of malignancy. A 1 year screening mammogram is recommended. The patient has been or will be contacted. The patient will be entered into a reminder system with a target due date of 1 year for her next screening exam. Electronically signed by: Fabiola selby/hood:10/21/2018 11:34:36 Qualitative Researcher: Trinity Weathers (R), [facility] letter sent: Normal Exam Reading location: [place] BI-RADS: 1 Negative Enid Solano APRN, SOFTWARE TEST SPECIALIST IMG MAMMO ORDERABLES Fin al Result from Last 3 Months or Most Recently Relevant to Health Maintenance Insurance MEDICAID [place] Care Teams Shrimp Header Relationship Specialty Start Date End Date Desirae Wolf MD [address] [place] [address] PCP - General Stepdown Nurse 05/01/22 Jemal Krueger DO Gastroenterology 03/23/16 Roberta Mcmullen APRN, SOFTWARE TEST SPECIALIST Nurse Practitioner Advanced Practice Nurse 03/23/16 Kecia Burkett APRN, SOFTWARE TEST SPECIALIST Nurse Practitioner Advanced Practice Nurse 03/23/16 Jonh Carr MD [address] [place] [address] [phone] Consulting Physician Internal Medicine 06/30/16 Jonh Carr MD [address] [place] [address] [phone] Consulting Physician Endocrinology 03/27/22
--- OUTSIDE RECORDS SUMMARY | 2025-05-26 17:18 | XMS_ITS | Clinical Summary ---
Author Organization [facility] Address [address] [facility] [place] [address] Care Team Providers Care School Community Relations Coordinator Name Role Phone Desirae Wolf MD Primary Care Provider [phone] Allergies No known active allergies Medications ferrous sulfate 325 mg (65 mg iron) tablet Take 1 Tablet (325 mg) by mouth daily. 30 Tablet 3 10/23/2023 Active MULTIVITAMIN ORAL Take by mouth daily. Active CALCIUM CITRATE-VITAMIN D3 ORAL Take by mouth daily. Active CYANOCOBALAMIN, VITAMIN B-12, ORAL Take by mouth daily. Active pyridoxine HCl, vitamin B6, (PYRIDOXINE, VITAMIN B6, ORAL) Take by mouth daily. Active DULoxetine 40 mg Capsule, Delayed Release(E.C.) 11/03/2024 Activ e levothyroxine 100 mcg tablet Take 100 mcg by mouth daily. Active pantoprazole (PROTONIX) 40 mg Tablet, Delayed Release (E.C.) Take 40 mg by mouth daily. 12/01/2024 Active Active Problems Problem Noted Date Diagnosed Date Iron deficiency anemia 05/10/2017 Encounters Date Type Department Care Team Description 04/21/2025 External Device Data STL ABSTRACTION Provider, Abstract 04/01/2025 External Device Data STL ABSTRACTION Provider, Abstract 04/01/2025 External Device Data STL ABSTRACTION Provider, Abstract 03/03/2025 External Device Data STL ABSTRACTION Provider, Abstract from Last 3 Months Family History Medical History Relation Name Comments No Known Problems Brother No Known Problems Child 1 No Known Problems Child 2 No Known Problems Child 3 No Known Problems Father Other Mother No Known Problems Sister 1 No Known Problems Sister 2 No Known Problems Sister 3 No Known Problems Sister 4 No Known Problems Sister 5 Relation Name Status Comments Brother Alive Child 1 Alive Child 2 Alive Child 3 Alive Father Alive Mother Alive Sister 1 Alive Sister 2 Alive Sister 3 Alive Sister 4 Alive Sister 5 Alive Social History Tobacco Use Types Packs/Day Years Used Date Smoking Tobacco: Former Cigarettes 0.5 12 0 05/10/2003 - 05/10/2015 Tobacco Cessation:Counseling Given: Not Answered Alcohol Use Standard Drinks/Week Comments Yes 0 (1 standard drink = 0.6 oz pur e alcohol) occasional Comments No Sex and Gender Information Value Date Recorded Sex Assigned at Not on file Legal Sex Female 1:06 PM CDT Gender Identity Not on file Sexual Orientation Not on file Last Filed Vital Signs Vital Sign Reading Time Taken Comments Blood Pressure 132/90 12/02/2024 12:01 PM CDT Pulse 84 12/02/2024 11:58 AM CDT Temperature 36.6 C (97.9 F) 12/02/2024 11:58 AM CDT Respiratory Rate 16 12/02/2024 11:5 8 AM CDT Oxygen Saturation 96% 12/02/2024 11: 58 AM CDT Inhaled Oxygen Concentration - - Weight 55.7 kg (122 lb 12.8 oz) 12/02/2024 11:58 AM CDT Patient verbally stated that this is the correct weight Height 157.5 cm (5' 2) 10/23/2023 2:24 PM SPA CONSULTANT Body Mass Index 22.46 10/23/2023 2:24 PM SPA CONSULTANT Plan of Treatment Upcoming Encounters Date Type Department Care Team (Late st Contact Info) Description 07/22/2025 2:15 PM SPA CONSULTANT Office Visit [facility] Oncology and Hematology - [place] [address] [facility] [address] [place] [address] Edison Cortez MD [address] [place] [address] Health Maintenance Due Date Last Done Comments DTAP/TDAP/TD VACCINES (1 - Tdap) 1993 HEPATITIS B VACCINES (1 of 3 - 19+ 3-dose series) 1993 HPV/Cotest (21-29) 1995 CERVICAL CANCER SCREENING 2004 HPV/Cotest (30-65) 2004 PAP SMEAR 2004 COLORECTAL SCREENING 2019 Colorectal Cancer Screening 2019 FIT-DNA Q 3 years 2019 FIT/FOBT Q 1 year 2019 Flex Sig/CT Colonography Q 5 years 2019 BREAST CANCER SCREENING 12/16/2020 12/17/19 20, 12/17/2019, 10/16/2018, Additional history exists ZOSTER VACCINE (1 of 2) 2024 INFLUENZA VACCINE (#1) 2025 Insurance [employer] MEDICAID [place] Care Teams School Community Relations Coordinator Relationship Specialty Start Date End Date Desirae Wolf MD PCP - General Family Practice 05/08/17
--- OUTSIDE RECORDS SUMMARY | 2025-05-26 17:18 | XMS_ITS | Clinical Summary ---
Author Organization [facility] Address [address] [place] [address] Care Team Providers Care Voltage Tester Name Role Phone Desirae Wolf MD Primary Care Provider [phone] Source Comments [facility],non-owned Affiliates and Associated Physician Practices is amultiple site organization consisting of ambulatory clinics and hospital sitesin [place], [place], [place] and [place]. This disclosure is being madepursuant to the Care Everywhere program and may not contain all information available regarding this patient. Last updated 18.[facility] Allergies No known active allergies Medications * Be aware that medications may not be up to date on this document. Alwaysverify current medications with the patient. AURALGAN SOLN by Otic route. Instill two to four gtts in right ear every four hours for three days 10 ml 0 0 Active Additional Information Patient not taking.Reported on 05/09/2024 ferrous sulfate 325 (65 FE) MG tablet Take 1 (one) tablet by mouth once daily 4 Active levothyroxine (Synthroid) 25 MCG tablet 4 Active Social History Tobacco Use Types Packs/Day Years Used Date Smoking Tobacco: Former Cigarettes Smokeless Tobacco: Never Tobacco Cessation:Counseling Given: Yes PHQ-2 Answer Date Recorded Patient Health Questionnaire-2 Score 0 05/09/2024 Comments No Sex and Gender Information Value Date Recorded Sex Assigned at Not on file 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 Gender Identity Not on file Sexual Orientation Not on file Last Filed Vital Signs Vital Sign Reading Time Taken Comments Blood Pressure 134/82 05/09/2024 11:50 AM CDT Pulse 68 05/09/2024 11:50 AM CDT Temperature 36.7 C (98.1 F) 05/09/2024 11:50 AM CDT Respiratory Rate 18 05/09/2024 11:50 AM CDT Oxygen Saturation 99% 05/09/2024 11:50 AM CDT Inhaled Oxygen Concentration - - Weight 72.6 kg (160 lb) 05/09/2024 11:50 AM CDT Height 154.9 cm (5' 1) 05/09/2024 11:50 AM CDT Body Mass Index 30.23 05/09/2024 11:50 AM CDT Plan of Treatment Health Maintenance Due Date Last Done Comments COLOGUARD (AGES 45-75) - COLON CA SCREENING 1974 COLON MONITORING 1974 COLONOSCOPY - COLON CA SCREENING 1974 CT COLONOGRAPHY - COLON CA SCREENING 1974 Colorectal Cancer Screening 1974 FIT - COLON CA SCREENING 1974 FLEX SIG - COLON CA SCREENING 1974 LIPID TESTING 1974 HIV SCREENING 1989 HEPATITIS C SCREENING 04/07/1992 DTAP/TDAP/TD VACCINES (1 - Tdap) 1993 HEPATITIS B VACCINE (1 of 3 - 19+ 3-dose series) 1993 PAP SMEAR 1995 MAMMOGRAM 12/14/2021 12/15/2019, 09/19, 10/16/2018, Additional history exists PNEUMOCOCCAL VACCINE 50+ (1 of 1 - PCV) 2024 ZOSTER VACCINE (1 of 2) 2024 DEPRESSION SCREENING 09/17/2024 05/09/2024 COVID-19 VACCINE (1 - 2023- season) 2025 INFLUENZA VACCINE (#1) 2025 HIB VACCINE Aged Out No longer eligi ble based on patient's age to complete this topic HPV VACCINE Aged Out No longer eligi ble based on patient's age to complete this topic MENINGOCOCCAL (Group B) VACCINE SHARED DECISION-MAKING Aged Out No longer eligible based on patient's age to complete this topic MENINGOCOCCAL GROUPS A/C/Y/W VACCINE Aged Out No longer eligible based on patient's age to complete this topic Medical Devices Implanted Type Area Medical Practice Administrator Device Identifier Shelf Expiration Date Model / Serial / Lot Nunu Watson Brstbio Mindy Sys Implanted:Qty: 1 on 12/17/2019 by Renay Sharif MD at [facility] 03/17/2020 SMARK-MINDY / / [id number] Procedures Procedure Name Priority Date/Time Associated Diagnosis Comments MM OUTSIDE MAMMOGRAM Routine 12/15/2019 11:36 AM CDT Abnormal mammogram from Last 3 Months or Most Recently Relevant to Health Maintenance Results * MM OUTSIDE MAMMO FILM READ (12/15/2019 11:36 AM CDT) Anatomical Region Laterality Modality Other 12/17/2019 1:35 PM CDT Impressions 12/17/2019 1:57 PM CDT IMPRESSION: Small mass within the upper outer left breast may represent a cluster of microcysts and is considered probably benign. BI-RADS category 3, probably benign findings. RECOMMENDATION: After further discussion with the patient, she has strong clinical concern about the small mass and prefers biopsy over six-month follow-up evaluation which I feel is appropriate management. Ultrasound guided vacuum biopsy will be performed at this time and dictated in a separate report. This report was electronically signed by TC SHARIF M.D. on 12/17/2019 1:57 PM . Narrative 12/17/2019 1:57 PM CDT Unilateral breast ultrasound. Outside interpretation of left diagnostic mammogram, bilateral screening mammogram, and targeted left breast ultrasound from [facility] on 12/09/2019 and 11/17/2019. COMPARISON: Left diagnostic mammogram from [facility] on 12/09/2019, as well as prior outside screening mammograms on 11/17/2019 and 07/26/2017. Left breast ultrasound performed at the outside hospital on 12/09/2019 is also available for review. HISTORY: The patient is a 44-year-old female who was found to have a new mass within the upper outer left breast on screening mammogram. Ultrasound revealed a complex cystic mass and biopsy was recommended. The patient is here for repeat ultrasound for second opinion, to consider possible biopsy. FINDINGS: Targeted high-resolution sonography was performed throughout the upper outer left breast by harbor pilot and physician. In the 2:00 position, 2 cm from the nipple, a 6 mm hypoechoic circumscribed parallel mass is identified. This has internal debris and likely represents a cluster of microcysts. Left diagnostic mammogram and bilateral screening mammogram was also reviewed prior to performing today's ultrasound. No suspicious mass, grouped microcalcification, or architectural distortion was seen within the right breast. An oval circumscribed mass persists in the 2:30-3:00 position of the left breast at middle depth. This appears to have increased in size from the 2017 mammograms. No additional mass, architectural distortion, or grouped microcalcification is seen within the left breast. Procedure Note Renay Sharif MD - 12/17/2019 Unilateral breast ultrasound. Outside interpretation of left diagnostic mammogram, bilateral screening mammogram, and targeted left breast ultrasound from [facility] on 12/09/2019 and 11/17/2019. COMPARISON: Left diagnostic mammogram from [facility] on12/09/2019, as well as prior outside screening mammograms on 11/17/2019 and 07/26/2017. Left breast ultrasound performed at the outside hospital on 12/09/2019 is also available for review. HISTORY: The patient is a 44-year-old female who was found to have a new mass within the upper outer left breast on screening mammogram.Ultrasound revealed a complex cystic mass and biopsy was recommended. The patientis here for repeat ultrasound for second opinion, to consider possible biopsy. FINDINGS: Targeted high-resolution sonography was performed throughout the upper outer left breast by harbor pilot and physician. In the 2:00 position, 2cm from the nipple, a 6 mm hypoechoic circumscribed parallel mass is identified. This has internal debris and likely represents a cluster of microcysts. Left diagnostic mammogram and bilateral screening mammogram was also reviewed prior to performing today's ultrasound. No suspicious mass, grouped microcalcification, or architectural distortion was seen within the right breast. An oval circumscribed mass persists in the 2:30-3:00 position of the left breast at middle depth. This appears to have increased in size from the 2017 mammograms. No additional mass, architectural distortion, or grouped microcalcification is seen withinthe left breast. IMPRESSION: Small mass within the upper outer left breast may represent a cluster of microcysts and is considered probably benign. BI-RADS category 3, probably benign findings. RECOMMENDATION: After further discussion with the patient, she hasstrong clinical concern about the small mass and prefers biopsy over six-month follow-up evaluation which I feel is appropriate management. Ultrasound guided vacuum biopsy will be performed at this time and dictated in a separate report. This report was electronically signed by TC SHARIF M.D. on 12/17/2019 1:57 PM . us Reany Sharif MD IMAGING Final Res ult from Last 3 Months or Most Recently Relevant to Health Maintenance Insurance [facility] Care Address: [address] [address] Care Teams Voltage Tester Relationship Specialty Start Date End Date Desirae Wolf MD [address] [place] [address] [address] [place] [address] PCP - General Family Medicine 12/17/19
--- OUTSIDE RECORDS SUMMARY | 2025-05-26 17:18 | XMS_ITS | Encounter Summary ---
Author Organization [facility] [employer] Care Team Providers Care Diamond Finishing Supervisor Name Role Phone Jemal Krueger DO Unavailable [phone] Roberta Mcmullen SUBCONTRACT ADMINISTRATOR, PRODUCT HANDLER Unavailable Kecia Burkett SUBCONTRACT ADMINISTRATOR, PRODUCT HANDLER Unavailable Jonh Carr MD Unavailable Jonh Carr MD Unavailable Desirae Wolf MD Primary Care Provider [phone] Encounter Details Date Type Department Care Team (Latest Contact Info) Description 05/26/2025 Travel Social History Tobacco Use Types Packs/Day Years [...] on file documented as of this encounter Plan of Treatment Upcoming Encounters Date Type Department Care Team (Late st Contact Info) Description 12/24/2025 3:00 PM CDT Office Visit [facility] - Endocrinology [facility] [address] [place] [address] Jonh Carr MD [id number] [address] documented as of this encounter Visit Diagnoses Not on filedocumented in this encounter Care Teams Diamond Finishing Supervisor Relationship Specialty Start Date End Date Desirae Wolf MD [address] [place] [address] [place] [address] PCP - General Electronic Installer 05/01/22 Jemal Krueger DO Gastroenterology 03/23/16 Roberta Mcmullen, SUBCONTRACT ADMINISTRATOR, PRODUCT HANDLER Nurse Practitioner Advanced Practice Nurse 03/23/16 Kecia Burkett APRN, PRODUCT HANDLER Nurse Practitioner Advanced Practice Nurse 03/23/16 Jonh Carr MD [address] [address] Consulting Physician Internal Medicine 06/30/16 Jonh Carr MD [address] [address] Consulting Physician Endocrinology 03/27/22 documented as of this encounter
== END 2025-05-26 16:25 | disposition home or self-care (01) ==
PROVIDERS: Visit Provider Obstetrics & Gynecology
DX: Z12.31 Encounter for screening mammogram for malignant neoplasm of breast (principal)
CPT/HCPCS: 77063; 77067

== ENCOUNTER 2025-07-29 12:29 | Day surgery (SDC) | payer OTHER, SELFPAY ==
[2025-07-20 12:39] VITALS: BMI 23.8
--- OUTSIDE RECORDS SUMMARY | 2025-07-29 13:34 | XMS_ITS | Clinical Summary ---
Author Organization [facility] Address [address] [place] [address] Phone Care Team Providers Care 1St Pressman Name Role Phone HARRISON AGUIRRE, TAE Primary Care Provider [phone] KRISTINA AGUIRRE, GITA Melendez Unavailable [phone] Reason for Visit and Chief Complaint NO SHOW Problems Includes: Problems addressed during this encounter and other active Problems All Visits Onset Date Resolved Date Provider Condition S tatus Dysfunctional Uterine Bleeding 05/07/2019 GITA ACEVEDO MD Active Last Documented On 05/07/2019 4:12PM ; [facility] Note: Unchanged Anemia 08/23/2017 MARSHA CHAMORRO WHNP-BC Active Last Documented On 08/23/2017 3:11PM ; [facility] Note: iron deficient Asthma 07/31/2013 MARSHA CHAMORRO WHNP-BC Active Last Documented On 3 10:37AM ; [facility] Previous Leep 01/11/2011 MARSHA CHAMORRO NP-BC Active Last Documented On 1 11:07AM ; [facility] ABN PAP CERVIX HPV NEC 01/03/2010 MARSHA CHAMORRO NP-BC Active Last Documented On 0 3:49PM ; [facility] Plan of Treatment No Plan of Treatment Recorded Assessments Includes: Assessments from this encounter No Assessments Recorded Medical Equipment - Implanted Devices Includes: Current Devices No Medical Equipment Recorded Medications Includes: Medications discussed during this encounter and other current Medications Current Medications (continue as prescribed) [facility] Iron 325 (65 Fe)MG Oral Tablet 08/23/2017 Provid er: Diagnosis: Last Documented On 08/23/2017 3:08PM By CHELO MEADOWS ; [facility] Medications Administered Includes: Administered Medications from this encounter No Administered Medications Recorded Results Includes: Results discussed during this encounter No Results Recorded For Specified Dates History of Present Illness Includes: History of Present Illness from this encounter No History of Present Illness Recorded Social History No Social History Recorded - Smoking Status Unknown Medical History Includes: Medical History addressed during this encounter No Medical History Recorded Family History Includes: Family History addressed during this encounter No Family History Recorded Review of Systems Includes: Review of Systems from this encounter No Review of Systems Recorded Mental Status Includes: Mental Status from this encounter No Mental Status Recorded Functional Status Includes: Functional Status from this encounter No Functional Status Recorded Physical Exam Includes: Physical Exam from this encounter No Physical Exam Recorded Allergies Includes: Active Allergies No Known Allergies Encounters Encounter Provider Location Date Check-In Time Check-Out Time Diagnosis NO SHOW GITA ACEVEDO MD [facility] STEAM LOCOMOTIVE FIRER/FIREMAN 06/16/2019 3:30PM 11:59PM Insurance Includes: Active Insurance Policies Plan Name Member ID Group # Subscriber Relationship Effect nolan Dates 1 - [facility] DEPT [id number] LUKE CHACON Self Clinical Notes Includes: Clinical Notes from this encounter No Clinical Notes Recorded
--- OUTSIDE RECORDS SUMMARY | 2025-07-29 13:34 | XMS_ITS | Clinical Summary ---
Author Organization [facility] Address [address] [place] [address] Care Team Providers Care Fundraising Specialist Name Role Phone Desirae Wolf MD Primary Care Provider [phone] Source Comments [facility],non-owned Affiliates and Associated Physician Practices is amultiple site organization consisting of ambulatory clinics and hospital sitesin [place], [place], [place] and [place]. This disclosure is being madepursuant to the Care Everywhere program and may not contain all information available regarding this patient. 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[employer] Gender Identity Not on file Sexual Orientation [...] of 3 - 19+ 3-dose series) 1993 Cervical Cancer Screening 1995 PAP SMEAR 1995 PAP with HPV 2004 MAMMOGRAM 12/14/2021 12/15/2019, 09/19, 10/16/2018, Additional history exists PNEUMOCOCCAL VACCINE 50+ (1 of 1 - PCV) 2024 ZOSTER VACCINE (1 of 2) 2024 DEPRESSION SCREENING 09/17/2024 05/09/2024 COVID-19 VACCINE (1 - 2024- season) 2025 INFLUENZA VACCINE (#1) 2025 HIB [...] this topic Medical Devices Implanted Type Area Fitting Room Supervisor Device Identifier Shelf Expiration Date Model / Serial / Lot Nunu Guillen Sydaniel Implanted:Qty: 1 on 12/17/2019 by Renay Sharif MD at [facility] 03/17/2020 SMARK-JANEL / / [id number] Procedures Procedure Name Priority Date/Time Associated Diagnosis [...] report. This report was electronically signed by CT SHARIF M.D. on 12/17/2019 1:57 PM . Narrative 12/17/2019 1:57 PM CDT Unilateral breast ultrasound. Outside interpretation of left diagnostic mammogram, bilateral screening mammogram, and targeted left breast ultrasound from [facility] on 12/09/2019 and 11/17/2019. COMPARISON: Left diagnostic mammogram from [facility] on 12/09/2019, as well as prior outside [...] throughout the upper outer left breast by high school band director and physician. In the 2:00 position, 2 [...] mammogram, and targeted left breast ultrasound from [facility] on 12/09/2019 and 11/17/2019. COMPARISON: Left diagnostic mammogram from [facility] on12/09/2019, as well as prior outside screening [...] throughout the upper outer left breast by high school band director and physician. In the 2:00 position, 2cm [...] M.D. on 12/17/2019 1:57 PM . us Renay Sharif MD IMAGING Final Res ult from Last 3 Months or Most Recently Relevant to Health Maintenance Insurance [facility] Care Teams Fundraising Specialist Relationship Specialty Start Date End Date Desirae Wolf MD [address] [place] [address] [address] [place] [address] PCP - General Family Medicine 12/17/19
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
--- OUTSIDE RECORDS SUMMARY | 2025-07-29 13:34 | XMS_ITS | Clinical Summary ---
Author Organization [facility] Address [address] [place] [address] Phone Care Team Providers Care Hydraulic Corrugating Machine Operator Name Role Phone HARRISON AGUIRRE, TAE Primary Care Provider [phone] KRISTINA AGUIRRE, GITA Melendez Unavailable [phone] Reason for Visit and Chief Complaint gynecologic procedure : endometrial biopsy - The Chief Complaint is: emb for thickened endometrium Problems Includes: Problems addressed during this encounter and other active Problems All Visits Onset Date Resolved Date Provider Condition S tatus Dysfunctional Uterine Bleeding 05/07/2019 GITA ACEVEDO MD Active Last Documented On 05/07/2019 4:12PM ; [facility] Note: Unchanged Anemia 08/23/2017 MARSHA CHAMORRO WHNP-BC Active Last Documented On 08/23/2017 3:11PM ; [facility] Note: iron deficient Asthma 07/31/2013 MARSHA CHAMORRO WHNP-BC Active Last Documented On 3 10:37AM ; [facility] Previous Leep 01/11/2011 MARSHA CHAMORRO WHNP-BC Active Last Documented On 1 11:07AM ; [facility] ABN PAP CERVIX HPV NEC 01/03/2010 MARSHA CHAMORRO NP-BC Active Last Documented On 0 3:49PM ; [facility] Plan of Treatment - Clinical summary provided to patient - Last Documented On 03/03/2019 3:47PM ; [facility] Call if no menses > or = 90 days for possible hormonal induction of menses. Call if pelvic pain , especially on one side or the other. Try to exercise for at least 30 minutes at least 4 times per week and follow a low-fat diet. - Last Documented On 03/03/2019 3:47PM ; [facility] Education and Decision Aids were provided during visit for: INFORMED CONSENT DISCUSSION: Endometrial biopsy was discussed in detail including discomfort, insufficient specimen with need to repeat test, and rare incidence of uterine perforation. Patient expressed understanding of the above and consented to the procedure Last Documented On 9 3:32PM ; [facility] Assessments Includes: Assessments from this encounter No Assessments Recorded Instructions Includes: Instructions from this encounter Education and Decision Aids were provided during visit for: INFORMED CONSENT DISCUSSION: Endometrial biopsy was discussed in detail including discomfort, insufficient specimen with need to repeat test, and rare incidence of uterine perforation. Patient expressed understanding of the above and consented to the procedure Last Documented On 9 3:32PM ; [facility] Medical Equipment - Implanted Devices Includes: Current Devices No Medical Equipment Recorded Medications Includes: Medications discussed during this encounter and other current Medications Discontinued / Stopped on this date MARSHA GARCIA on 01/23/2019 Provera 10MG Oral Tablet Provider: JOCELYNE GARCIA Diagnosis: Last Documented On 03/03/2019 3:35PM By CHELO MEADOWS ; [facility] Current Medications (continue as prescribed) [facility] 325 (65 Fe)MG Oral Tablet 08/23/2017 Provid er: Diagnosis: Last Documented On 08/23/2017 3:08PM By CHELO MEADOWS ; [facility] Medications Administered Includes: Administered Medications from this encounter No Administered Medications Recorded Vital Signs Includes: Vital Signs from this encounter Vital Name 03/03/2019 03:31P 03/03/2019 03: 31P Height (in) 62 62 Blood Pressure Sitting L 120/70 BP Cuff Size Regular Weight (lb) 152 Body Mass Index (kg/m2) 27.8 Body Surface Area (m2) 1.7 Last Documented: On 03/03/2019 3:31PM ; [facility] On 03/03/2019 3:34PM ; [facility] Results Includes: Results discussed during this encounter [facility] Ordered by MARSHA GARCIA on 05/2019 Collected: 01/23/2019 Reported: 01/25/20 19 09:46 Last Documented On 9 2:06PM ; [facility] Reviewed by MARSHA YORK on 01/24/2019; All test results are final unless otherwise noted. FSH 14.0 mIU/mL N (Normal) Last Documented On 01/24/2019 2:06PM ; [facility] Note: Reference Range Follicular Phase 2.5-10.2 Mid-cycle Peak 3.1-17.7 Luteal Phase 1.5- 9.1 Postmenopausal 23.0-116.3 History of Present Illness Includes: History of Present Illness from this encounter HPI LUKE CHACON is a 43 year old female. - Medication list reviewed. Social History Description Last Updated Smoking status : Never smoker 03/03/2019 Last Documented On 9 3:47PM ; [facility] Alcohol use: 2 drinks or less per day Last Documented On 9 3:31PM ; [facility] Non-smoker 09/30/2018 Last Documented On 9 3:31PM ; [facility] Sexually active with 1 partners in the l ast year 08/23/2017 Last Documented On 9 3:31PM ; [facility] Procedures and Surgical History Includes: Procedures from this encounter Procedures Code Diagnosis Performing Provider Service Location Service Date endometrial biopsy was performed ~Procedure Note: Done without complications.~Amt of Tissue: Adequate~Uterine Sound Measurement: Approximately 8 cm after single tooth tenaculum applied to posterior cervix. Excellent hemostasis with silver nitrate x 2. Tolerated well [id number] Last Documented On 9 3:46PM ; [facility] a [place]vag[place] the [place] [id number] Last Documented On 9 3:32PM ; [facility] no uterine enlargement Last Documented On 9 3:32PM ; [facility] a transvaginal ultrasound of the ovaries is abno rmal [id number] Last Documented On 9 3:32PM ; [facility] no enlargement of the right ovary Last Documented On 9 3:32PM ; [facility] no enlargement of the left ovary Last Documented On 9 3:32PM ; [facility] mass on the right ovary small cyst/vs. d ominant follicle Last Documented On 9 3:35PM ; [facility] no mass on the left ovary small left ova srinivasa cyst Last Documented On 9 3:35PM ; [facility] endometrium thickness 20.0 mm Last Documented On 9 3:32PM ; [facility] the cul-de-sac had no fluid present t/v pelvic u/s done 02-06-19 Last Documented On 9 3:32PM ; [facility] Surgical History Last Updated History of Loop electrode excision of ce rvix (LEEP) 05/07/2019 Last Documented On 9 3:31PM ; [facility] Surgical / procedural history tonsils ~l eep 11-07-13 wnl 08/06/2014 Last Documented On 9 3:31PM ; [facility] Previous colposcopy 02/03/2012 03/21/2012 Last Documented On 9 3:31PM ; [facility] Medical History Includes: Medical History addressed during this encounter Description Last Updated LMP: 02/10/2019 03/03/2019 Last Documented On 9 3:47PM ; [facility] Contraception: vascetomy 01/23/2019 Last Documented On 9 3:31PM ; [facility] Last mammogram date: 10/16/2018 9 Last Documented On 9 3:31PM ; [facility] Last pap smear date 09/30/2018 01/23/2019 Last Documented On 9 3:31PM ; [facility] No recent change in medical history 09/17 Last Documented On 9 3:31PM ; [facility] Sexually active 09/30/2018 Last Documented On 9 3:31PM ; [facility] History of Pap smear done 08/23/2017 Last Documented On 9 3:31PM ; [facility] History of screening mammogram was perfo rmed 07/26/2017 09/30/2018 Last Documented On 9 3:31PM ; [facility] Result: normal 09/30/2018 Last Documented On 9 3:31PM ; [facility] Result: normal 09/30/2018 Last Documented On 9 3:31PM ; [facility] History of complete colonoscopy 03/2017 Last Documented On 9 3:31PM ; [facility] 3 06/05/2017 Last Documented On 9 3:31PM ; [facility] Para 3 06/05/2017 Last Documented On 9 3:31PM ; [facility] History of cervical dysplasia CxBx 09-04 RAMIRO II 09/23/2013 Last Documented On 9 3:31PM ; [facility] CxBx 02-02-11 09/04/2013 Last Documented On 9 3:31PM ; [facility] History of asthma 01/11/2011 Last Documented On 9 3:31PM ; [facility] History of human papilloma virus infecti on 01/03/2010 Last Documented On 9 3:31PM ; [facility] Asthma 10/06/2009 Last Documented On 9 3:31PM ; [facility] Family History Includes: Family History addressed during this encounter Description Last Updated Family history unchanged 09/30/2018 Last Documented On 9 3:31PM ; [facility] Family history of diabetes mellitus Mate rnal cousin 01/11/2011 Last Documented On 9 3:31PM ; [facility] Family history of Cancer 10/06/2009 Last Documented On 9 3:31PM ; [facility] Family history of thyroid disease 2009 Last Documented On 9 3:31PM ; [facility] Family medical history of High Cholester ol 10/06/2009 Last Documented On 9 3:31PM ; [facility] Review of Systems Includes: Review of Systems [...] Location Date Check-In Time Check-Out Time Diagnosis ENDOMETRIAL BIOPSY MARSHA CHAMORRO [facility]

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
--- OUTSIDE RECORDS SUMMARY | 2025-07-29 13:34 | XMS_ITS | Clinical Summary ---
Author Organization [facility] Address [address] [place] [address] Phone Care Team Providers Care [employer] Board Certified Orthotist Name Role Phone Jemal Krueger DO Unavailable [phone] Roberta Mcmullen TOOL ROOM GEAR MACHINE OPERATOR, SIGNAL WORKER HELPER Unavailable Kecia Burkett TOOL ROOM GEAR MACHINE OPERATOR, SIGNAL WORKER HELPER Unavailable Jonh Carr MD Unavailable Jonh Carr MD Unavailable Desirae Wolf MD Primary Care Provider [phone] Allergies No known active allergies Medications ferrous [...] Office Visit [facility] - Endocrinology [facility] [address] [place] [address] Jonh Carr MD Nodular goiter (Primary Dx); 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] CAD W GEREMIAS Routine 10/16/2018 2:55 PM LEGAL CLERK Encounter for screening mammogram for malignant neoplasm of breast from Last 3 Months or Most Recently Relevant to Health Maintenance Results * ROWDY SCREENING BILATERAL DIGITAL W CAD W GEREMIAS (10/16/2018 2:55 PM LEGAL CLERK) Anatomical Region Laterality Modality breast Bilateral Mammography 10/16/2018 3:09 PM LEGAL CLERK Narrative 10/21/2018 2:08 PM LEGAL CLERK - ROWDY SCREENING BILATERAL DIGITAL W CAD [...] is made to exams dated: 08/22/2016, 07/27/2015 [facility], and 07/26/2017 [facility]. BREAST TISSUE:There are scattered fibroglandular densities in [...] exam. Electronically signed by: Fabiola selby/hood:10/21/2018 11:34:36 Power Station Operator: Trinity Weathers (R), [facility] letter sent: Normal Exam Reading location: [place] [...] is made to exams dated: 08/22/2016, 07/27/2015 [facility], and 07/26/2017 [facility]. BREAST TISSUE:There are scattered fibroglandular densities in [...] exam. Electronically signed by: Fabiola selby/hood:10/21/2018 11:34:36 Power Station Operator: Trinity Weathers (R), [facility] letter sent: Normal Exam Reading location: [place] BI-RADS: 1 Negative Enid Solano TOOL ROOM GEAR MACHINE OPERATOR, SIGNAL WORKER HELPER IMG MAMMO ORDERABLES Fin al Result from Last 3 Months or Most Recently Relevant to Health Maintenance Insurance MEDICAID [place] Care Teams American Board Certified Orthotist Relationship Specialty Start Date End Date Desirae Wolf MD [address] [place] [address] PCP - General Printing Equipment Mechanic Apprentice 05/01/22 Jemal Krueger DO Gastroenterology 03/23/16 Roberta Mcmullen APRN, SIGNAL WORKER HELPER Nurse Practitioner Advanced Practice Nurse 03/23/16 Kecia Burkett APRN, SIGNAL WORKER HELPER Nurse Practitioner Advanced Practice Nurse 03/23/16 Jonh Carr MD [address] [address] Consulting Physician Internal Medicine 06/30/16 Jonh Carr MD [address] [address] Consulting Physician Endocrinology 03/27/22
--- OUTSIDE RECORDS SUMMARY | 2025-07-29 13:34 | XMS_ITS ---
Author Organization [facility] Address [address] [place] [address] Phone Care Team Providers Care Burning Plant Operator Name Role Phone HARRISON AGUIRRE, TAE Primary Care Provider [phone] KRISTINA AGUIRRE, GITA Melendez Unavailable [phone] Problems Includes: Active, inactive, and resolved Problems All Visits Onset Date Resolved Date Provider Condition S tatus Dysfunctional Uterine Bleeding 05/07/2019 GITA ACEVEDO MD Active Last Documented On 05/07/2019 4:12PM ; [facility] Note: Unchanged Anemia 08/23/2017 MARSHA CHAMORRO WHNP-BC Active Last Documented On 08/23/2017 3:11PM ; [facility] Note: iron deficient Asthma 07/31/2013 MARSHA CHAMORRO WHNP-BC Active Last Documented On 3 10:37AM ; [facility] Previous Leep 01/11/2011 MARSHA CHAMORRO WHNP-BC Active Last Documented On 1 11:07AM ; [facility] ABN PAP CERVIX HPV NEC 01/03/2010 MARSHA CHAMORRO WHNP-BC Active Last Documented On 0 3:49PM ; [facility] Plan of Treatment Findings Encounter Date Ordered Clinical summary pro vided to patient ENDOMETRIAL BIOPSY with MARSHA CHAMORRO WHNP-BC 03/03/2019 Last Documented On 9 3:47PM ; [facility] Ordered Clinical summary pro vided to patient PROBLEM VISIT with MARSHA CHAMORRO WHNP-BC 01/23/2019 Last Documented On 9 8:26AM ; [facility] Ordered Clinical summary pro vided to patient ELECTRICAL ENGINEERING DIRECTOR EXAM with MARSHA CHAMORRO WHNP-BC 09/30/2018 Last Documented On 9 3:55PM ; [facility] Ordered follow-up visit 1 ye ar or as needed ELECTRICAL ENGINEERING DIRECTOR EXAM with MARSHA CHAMORRO [facility]- 09/30/2018 Last Documented On 9 3:55PM ; [facility] Ordered Clinical summary pro vided to patient ANNUAL MARKETING DEVELOPER EXAM with MARSHA CHAMORRO [facility]- 08/23/2017 Last Documented On 7 3:33PM ; [facility] Ordered follow-up visit 1 ye ar or as needed ANNUAL MARKETING DEVELOPER EXAM with MARSHA CHAMORRO [facility]- 08/23/2017 Last Documented On 7 3:33PM ; [facility] Ordered follow-up visit 1 ye ar or as needed ELECTRICAL ENGINEERING DIRECTOR EXAM with MARSHA CHAMORRO [facility]- 08/21/2016 Last Documented On 6 2:57PM ; [facility] Ordered Clinical summary pro vided to patient ELECTRICAL ENGINEERING DIRECTOR EXAM with MARSHA CHAMORRO [facility]- 08/18/2015 Last Documented On 5 8:35AM ; [facility] Ordered follow-up visit 1 ye ar or as needed ELECTRICAL ENGINEERING DIRECTOR EXAM with MARSHA CHAMORRO [facility]- 08/18/2015 Last Documented On 5 8:35AM ; [facility] Ordered Clinical summary pro vided to patient ELECTRICAL ENGINEERING DIRECTOR EXAM with MARSHA CHAMORRO [facility]- 07/31/2013 Last Documented On 3 10:53AM ; [facility] Pap smear (done) with HPV DNA testing RE-PAP wit h MARSHA CHAMORRO [facility]- 10/04/2012 Last Documented On 3 11:14AM ; [facility] Pt. would like to start ocps with next cycle. Plan B info given and d/w pt. in detail. She did have unprotected sex, presumably during her ovulation cycle next month, so she will call if + hpt or if menses to start ocps ELECTRICAL ENGINEERING DIRECTOR EXAM with MARSHA CHAMORRO [facility]- 03/21/2012 Last Documented On 2 9:40AM ; [facility] Luis F spent 15 minute s discussing possible permanent b/c options. She does not wish to have any more children. Kaiden, Familia and BTL literature given and briefly d/w pt. and she will call if desires to pursue. Not currently sexually active PAP SMEAR ONLY with MARSHA CHAMORRO [facility]- 11/16/2011 Last Documented On 2 4:26PM ; [facility] Pap smear (done) with HPV DNA testing PA P SMEAR ONLY with MARSHA CHAMORRO [facility]- 11/16/2011 Last Documented On 2 4:26PM ; [facility] 6 months - repeat pap - not currently sexually active, so not using contraception. Essure info given and pt. will read and call if interested RE-PAP with MARSHA CHAMORRO [facility] 05/17/2011 Last Documented On 1 4:40PM ; [facility] Pap smear (done) with HPV DNA testing RE-PAP wit kei CHAMORRO [facility]- 05/17/2011 Last Documented On 1 4:40PM ; [facility] Ordered follow-up visit 1 ye ar or as needed ELECTRICAL ENGINEERING DIRECTOR EXAM with MARSHA CHAMORRO [facility]- 01/11/2011 Last Documented On 1 11:19AM ; [facility] Ordered follow-up visit 1 ye ar or as needed ELECTRICAL ENGINEERING DIRECTOR EXAM with MARSHA CHAMORRO [facility] 01/03/2010 Last Documented On 0 3:56PM ; [facility] Instructions to patient Return to the clinic if cond ition worsens or new symptoms arise Last Documented On 9 8:13AM ; [facility] ER/ Pain Precautions Last Documented On 9 8:13AM ; [facility] Safe sex counseling Last Documented On 9 8:26AM ; [facility] Instructions for patient : B reast Self Exam discussed Last Documented On 9 3:29PM ; [facility] Instructions for patient : B reast Self Exam discussed Last Documented On 7 2:58PM ; [facility] Return to the clinic if cond ition worsens or new symptoms arise Last Documented On 7 3:08PM ; [facility] Instructions for patient : B reast Self Exam discussed Last Documented On 6 2:35PM ; [facility] Instructions for patient : B reast Self Exam discussed Last Documented On 5 8:17AM ; [facility] Colonoscopy Handout given to patient Last Documented On 5 8:17AM ; [facility] Instructions for patient : B reast Self Exam discussed Last Documented On 4 8:47AM ; [facility] Instructions for patient : B reast Self Exam discussed Last Documented On 3 10:33AM ; [facility] Instructions for patient : K eep the area around the vulva dry. Allow the area to have exposure to air. Avoid irritants such as fabric softeners and perfumed soaps.~ Last Documented On 3 10:52AM ; [facility] Advised d/c scented bath pro ducts Last Documented On 3 10:52AM ; [facility] Safe sex counseling Last Documented On 3 10:37AM ; [facility] Instructions for patient : B reast Self Exam discussed Last Documented On 2 9:19AM ; [facility] Instructions for patient : B reast Self Exam discussed Last Documented On 1 10:59AM ; [facility] Instructions For Patient: pe lvic rest until test results back Last Documented On 1 10:27AM ; [facility] Instructions for patient : B reast Self Exam discussed Last Documented On 0 3:37PM ; [facility] Lose weight Last Documented On 0 3:56PM ; [facility] Safe sex counseling going th rough a divorce right now, not sexually active. Will call if status changes Last Documented On 0 3:56PM ; [facility] Education and Decision Aids were provided during visit for: INFORMED CONSENT DISCUSSION: Endometrial biopsy was discussed in detail including discomfort, insufficient specimen with need to repeat test, and rare incidence of uterine perforation. Patient expressed understanding of the above and consented to the procedure Last Documented On 9 3:32PM ; [facility] Patient Education: Daily darion cium and vitamin D Last Documented On 9 3:29PM ; [facility] Patient Education: weight be aring exercise Last Documented On 9 3:29PM ; [facility] Patient Education: Daily darion cium and vitamin D Last Documented On 7 2:58PM ; [facility] Patient Education: weight be aring exercise Last Documented On 7 2:58PM ; [facility] Patient Education: Daily darion cium and vitamin D Last Documented On 6 2:35PM ; [facility] Patient Education: weight be aring exercise Last Documented On 6 2:35PM ; [facility] Patient Education: Daily darion cium and vitamin D Last Documented On 5 8:17AM ; [facility] Patient Education: weight be aring exercise Last Documented On 5 8:17AM ; [facility] Smoking cessation advised Last Documented On 5 8:17AM ; [facility] Patient education : Last Documented On 4 8:47AM ; [facility] STD screening desired and or dered cultures and blood tests Last Documented On 4 9:11AM ; [facility] INFORMED CONSENT DISCUSSION: Prior to the procedure the risks of LEEP were discussed with the patient, including but not limited to bleeding (both during the procedure and in the first 2 weeks following), infection, cervical stenosis, and inadequate margins requiring a repeat procedure. The benefits of obtaining excisional biopsy results and possible resolution of cervical dysplasia were communicated. The alternatives of watchful waiting with repeat colposcopy, or cone biopsy in the ambulatory surgery center were discussed. Patient expressed understanding of the above and consented to the procedure Last Documented On 4 3:38PM ; [facility] INFORMED CONSENT DISCUSSION: Colposcopy was discussed in detail including risk of post procedure bleeding. Patient is not to have intercourse for 7 days following the procedure. Patient expressed understanding of the above and consented to the procedure Last Documented On 3 2:18PM ; [facility] Patient Education: Daily darion cium and vitamin D Last Documented On 3 10:33AM ; [facility] Patient Education: weight be aring exercise Last Documented On 3 10:33AM ; [facility] Smoking cessation advised Last Documented On 3 10:53AM ; [facility] Patient counseling : discuss ed with patient importance of f/u re: increased risks of cervical cancer Last Documented On 3 10:52AM ; [facility] Patient counseling : discuss ed with patient importance of f/u re: increased risks of cervical cancer Last Documented On 2 9:22AM ; [facility] Patient Education: Daily darion cium and vitamin D Last Documented On 2 9:19AM ; [facility] Patient Education: weight be aring exercise Last Documented On 2 9:19AM ; [facility] control consent review ed and signed Last Documented On 2 9:40AM ; [facility] Patient counseling : discuss ed with patient importance of f/u re: increased risks of cervical cancer Last Documented On 2 4:15PM ; [facility] Smoking cessation advised Last Documented On 2 4:17PM ; [facility] Patient counseling : discuss ed with patient importance of f/u re: increased risks of cervical cancer Last Documented On 1 4:34PM ; [facility] INFORMED CONSENT DISCUSSION: Colposcopy was discussed in detail including risk of post procedure bleeding. Patient is not to have intercourse for 2 weeks following the procedure. Patient expressed understanding of the above and consented to the procedure Last Documented On 1 4:14PM ; [facility] Patient counseling : STD pre vention. I discussed with the patient that condoms can reduce the chance of getting an STD but not eliminate it. Increased exposure from multiple sex partners also discussed Last Documented On 1 10:27AM ; [facility] Smoking cessation advised Last Documented On 1 10:36AM ; [facility] Patient Education: weight be aring exercise Last Documented On 0 3:56PM ; [facility] Assessments Includes: Assessments for all patient encounters Findings Encounter Date Dysfunctional uterine bleeding CONSULTATION with GITA ACEVEDO MD 05/07/2019 Last Documented On 9 4:15PM ; [facility] Female pelvic pain PROBLEM VISIT with MARSHA BRITTON [facility]- 01/23/2019 Last Documented On 9 8:26AM ; [facility] NORMAL FEMALE EXAM ELECTRICAL ENGINEERING DIRECTOR EXAM with MARSHA Osman [facility]- 09/30/2018 Last Documented On 9 3:55PM ; [facility] Screening Malig. Neoplasm Rectum ELECTRICAL ENGINEERING DIRECTOR EXAM with Nora CHAMORRO NP-BC 09/30/2018 Last Documented On 9 3:55PM ; [facility] Female pelvic pain ANNUAL MARKETING DEVELOPER EXAM with MARSHA Ward PEDRO PABLO NP-BC 08/23/2017 Last Documented On 7 3:33PM ; [facility] NORMAL FEMALE EXAM ANNUAL MARKETING DEVELOPER EXAM with MARSHA Ward PEDRO PABLO NP-BC 08/23/2017 Last Documented On 7 3:33PM ; [facility] Screening Malig. Neoplasm Rectum ANNUAL MARKETING DEVELOPER EXAM with MARSHA Ward PEDRO PABLO NP-BC 08/23/2017 Last Documented On 7 3:33PM ; [facility] Menorrhagia CONSULTATION with JENNIFER ALEGRIA MD 06/05/2017 Last Documented On 7 11:56AM ; [facility] Female pelvic pain CONSULTATION with JENNIFER GUEVARA MD 12/26/2016 Last Documented On 7 1:57PM ; [facility] Ovarian cyst CONSULTATION with JENNIFER ALEGRIA MD 12/26/2016 Last Documented On 7 1:57PM ; [facility] NORMAL FEMALE EXAM ELECTRICAL ENGINEERING DIRECTOR EXAM with MARSHA Sylvia PEDRO PABLO Osman P-BC 08/21/2016 Last Documented On 6 2:57PM ; [facility] Screening Malig. Neoplasm Rectum ELECTRICAL ENGINEERING DIRECTOR EXAM with Nora MACIEJ Ward PEDRO PABLO NP-BC 08/21/2016 Last Documented On 6 2:57PM ; [facility] Menorrhagia CONSULTATION with JENNIFER ALEGRIA MD 07/10/2016 Last Documented On 6 11:40AM ; [facility] NORMAL FEMALE EXAM ELECTRICAL ENGINEERING DIRECTOR EXAM with MARSHA Ward PEDRO PABLO Osman HNP-BC 08/18/2015 Last Documented On 5 8:35AM ; [facility] Screening Malig. Neoplasm Rectum ELECTRICAL ENGINEERING DIRECTOR EXAM with Nora WING Sylvia PEDRO PABLO NP-BC 08/18/2015 Last Documented On 5 8:35AM ; [facility] Contraceptive management CONSULTATION with JENNIFER ALEGRIA MD 04/20/2015 Last Documented On 5 4:08PM ; [facility] Contraceptive management PROBLEM VISIT with JENNIFER ALEGRIA MD 11/05/2014 Last Documented On 5 3:35PM ; [facility] Urinary tract infection PROBLEM VISIT with JENNIFER ALEGRIA MD 11/05/2014 Last Documented On 5 3:35PM ; [facility] Vaginal candidiasis , wet pr ep shows yeast but no clue or trich PROBLEM VISIT with JENNIFER ALEGRIA MD 11/05/2014 Last Documented On 5 3:35PM ; [facility] Contraceptive management ELECTRICAL ENGINEERING DIRECTOR EXAM with JENNIFER STOCKTON MD 08/06/2014 Last Documented On 4 9:12AM ; [facility] Routine pelvic exam ELECTRICAL ENGINEERING DIRECTOR EXAM with JENNIFER ALEGRIA MD 08/06/2014 Last Documented On 4 9:12AM ; [facility] Urge incontinence of urine ELECTRICAL ENGINEERING DIRECTOR EXAM with JENNIFER ALEGRIA MD 08/06/2014 Last Documented On 4 9:12AM ; [facility] Cervical dysplasia LEEP with JENNIFER ALEGRIA MD Last Documented On 4 3:39PM ; [facility] Cervical dysplasia--moderate (RAMIRO II) LEEP with JENNIFER ALEGRIA MD 11/07/2013 Last Documented On 4 3:39PM ; [facility] Cervical dysplasia--moderate (RAMIRO II) CONSULTATI ON with JENNIFER ALEGRIA MD 09/23/2013 Last Documented On 4 10:44AM ; [facility] Assessment of abnormal Pap s mear of cervix COLPOSCOPY with JENNIFER ALEGRIA MD 09/04/2013 Last Documented On 3 2:21PM ; [facility] Assessment of abnormal Pap s mear: atypical squamous cells of undetermined significance COLPOSCOPY with JENNIFER ALEGRIA MD 09/04/2013 Last Documented On 3 2:21PM ; [facility] Assessment of cervical high risk human papilloma virus DNA test was positive COLPOSCOPY with JENNIFER ALEGRIA MD 09/04/2013 Last Documented On 3 2:21PM ; [facility] NORMAL FEMALE EXAM ELECTRICAL ENGINEERING DIRECTOR EXAM with MARSHA RAIP-BC 07/31/2013 Last Documented On 3 10:53AM ; [facility] Assessment of abnormal Pap s mear of cervix RE-PAP with MARSHA CHAMORRO [facility] 10/04/2012 Last Documented On 3 11:14AM ; [facility] Assessment of abnormal Pap s mear: atypical squamous cells of undetermined significance RE-PAP with MARSHA CHAMORRO [facility] 10/04/2012 Last Documented On 3 11:14AM ; [facility] Assessment of HPV DNA test ( HC2) = positive RE-PAP with MARSHA CHAMORRO [facility] 10/04/2012 Last Documented On 3 11:14AM ; [facility] NORMAL FEMALE EXAM ELECTRICAL ENGINEERING DIRECTOR EXAM with MARSHA CHAMORRO Jacqui [facility]- 03/21/2012 Last Documented On 2 9:40AM ; [facility] Assessment of abnormal Pap s mear of cervix PAP SMEAR ONLY with MARSHA CHAMORRO [facility] 11/16/2011 Last Documented On 2 4:26PM ; [facility] Assessment of abnormal Pap s mear of cervix RE-PAP with MARSHA CHAMORRO [facility] 05/17/2011 Last Documented On 1 4:40PM ; [facility] Assessment of abnormal Pap s mear: atypical squamous cells of undetermined significance RE-PAP with MARSHA CHAMORRO [facility] 05/17/2011 Last Documented On 1 4:40PM ; [facility] Assessment of HPV DNA test ( HC2) = positive RE-PAP with MARSHA CHAMORRO [facility]-BC 05/17/2011 Last Documented On 1 4:40PM ; [facility] Assessment of abnormal Pap s mear of cervix COLPOSCOPY with MARSHA CHAMORRO [facility] 02/02/2011 Last Documented On 1 4:32PM ; [facility] Assessment of abnormal Pap s mear: atypical squamous cells of undetermined significance COLPOSCOPY with MARSHA CHAMORRO [facility] 02/02/2011 Last Documented On 1 4:32PM ; [facility] Assessment of HPV DNA test ( HC2) = positive COLPOSCOPY with MARSHA CHAMORRO NP-BC 02/02/2011 Last Documented On 1 4:32PM ; [facility] Normal routine history and physical ELECTRICAL ENGINEERING DIRECTOR EXAM jamia CHAMORRO [facility] 01/11/2011 Last Documented On 1 11:19AM ; [facility] Routine pelvic exam ELECTRICAL ENGINEERING DIRECTOR EXAM with MARSHA CHAMORRO [facility]- 01/11/2011 Last Documented On 1 11:19AM ; [facility] Normal routine history and physical ELECTRICAL ENGINEERING DIRECTOR EXAM jamia CHAMORRO [facility] 01/03/2010 Last Documented On 0 3:56PM ; [facility] Routine pelvic exam ELECTRICAL ENGINEERING DIRECTOR EXAM with MARSHA CHAMORRO [facility] 01/03/2010 Last Documented On 0 3:56PM ; [facility] Instructions Includes: Instructions for all patient encounters Instructions to patient Return to the clinic if cond ition worsens or new symptoms arise Last Documented On 9 8:13AM ; [facility] ER/ Pain Precautions Last Documented On 9 8:13AM ; [facility] Safe sex counseling Last Documented On 9 8:26AM ; [facility] Instructions for patient : B reast Self Exam discussed Last Documented On 9 3:29PM ; [facility] Instructions for patient : B reast Self Exam discussed Last Documented On 7 2:58PM ; [facility] Return to the clinic if cond ition worsens or new symptoms arise Last Documented On 7 3:08PM ; [facility] Instructions for patient : B reast Self Exam discussed Last Documented On 6 2:35PM ; [facility] Instructions for patient : B reast Self Exam discussed Last Documented On 5 8:17AM ; [facility] Colonoscopy Handout given to patient Last Documented On 5 8:17AM ; [facility] Instructions for patient : B reast Self Exam discussed Last Documented On 4 8:47AM ; [facility] Instructions for patient : B reast Self Exam discussed Last Documented On 3 10:33AM ; [facility] Instructions for patient : K eep the area around the vulva dry. Allow the area to have exposure to air. Avoid irritants such as fabric softeners and perfumed soaps.~ Last Documented On 3 10:52AM ; [facility] Advised d/c scented bath pro ducts Last Documented On 3 10:52AM ; [facility] Safe sex counseling Last Documented On 3 10:37AM ; [facility] Instructions for patient : B reast Self Exam discussed Last Documented On 2 9:19AM ; [facility] Instructions for patient : B reast Self Exam discussed Last Documented On 1 10:59AM ; [facility] Instructions For Patient: pe lvic rest until test results back Last Documented On 1 10:27AM ; [facility] Instructions for patient : B reast Self Exam discussed Last Documented On 0 3:37PM ; [facility] Lose weight Last Documented On 0 3:56PM ; [facility] Safe sex counseling going th rough a divorce right now, not sexually active. Will call if status changes Last Documented On 0 3:56PM ; [facility] Education and Decision Aids were provided during visit for: INFORMED CONSENT DISCUSSION: Endometrial biopsy was discussed in detail including discomfort, insufficient specimen with need to repeat test, and rare incidence of uterine perforation. Patient expressed understanding of the above and consented to the procedure Last Documented On 9 3:32PM ; [facility] Patient Education: Daily darion cium and vitamin D Last Documented On 9 3:29PM ; [facility] Patient Education: weight be aring exercise Last Documented On 9 3:29PM ; [facility] Patient Education: Daily darion cium and vitamin D Last Documented On 7 2:58PM ; [facility] Patient Education: weight be aring exercise Last Documented On 7 2:58PM ; [facility] Patient Education: Daily darion cium and vitamin D Last Documented On 6 2:35PM ; [facility] Patient Education: weight be aring exercise Last Documented On 6 2:35PM ; [facility] Patient Education: Daily darion cium and vitamin D Last Documented On 5 8:17AM ; [facility] Patient Education: weight be aring exercise Last Documented On 5 8:17AM ; [facility] Smoking cessation advised Last Documented On 5 8:17AM ; [facility] Patient education : Last Documented On 4 8:47AM ; [facility] STD screening desired and or dered cultures and blood tests Last Documented On 4 9:11AM ; [facility] INFORMED CONSENT DISCUSSION: Prior to the procedure the risks of LEEP were discussed with the patient, including but not limited to bleeding (both during the procedure and in the first 2 weeks following), infection, cervical stenosis, and inadequate margins requiring a repeat procedure. The benefits of obtaining excisional biopsy results and possible resolution of cervical dysplasia were communicated. The alternatives of watchful waiting with repeat colposcopy, or cone biopsy in the ambulatory surgery center were discussed. Patient expressed understanding of the above and consented to the procedure Last Documented On 4 3:38PM ; [facility] INFORMED CONSENT DISCUSSION: Colposcopy was discussed in detail including risk of post procedure bleeding. Patient is not to have intercourse for 7 days following the procedure. Patient expressed understanding of the above and consented to the procedure Last Documented On 3 2:18PM ; [facility] Patient Education: Daily darion cium and vitamin D Last Documented On 3 10:33AM ; [facility] Patient Education: weight be aring exercise Last Documented On 3 10:33AM ; [facility] Smoking cessation advised Last Documented On 3 10:53AM ; [facility] Patient counseling : discuss ed with patient importance of f/u re: increased risks of cervical cancer Last Documented On 3 10:52AM ; [facility] Patient counseling : discuss ed with patient importance of f/u re: increased risks of cervical cancer Last Documented On 2 9:22AM ; [facility] Patient Education: Daily darion cium and vitamin D Last Documented On 2 9:19AM ; [facility] Patient Education: weight be aring exercise Last Documented On 2 9:19AM ; [facility] control consent review ed and signed Last Documented On 2 9:40AM ; [facility] Patient counseling : discuss ed with patient importance of f/u re: increased risks of cervical cancer Last Documented On 2 4:15PM ; [facility] Smoking cessation advised Last Documented On 2 4:17PM ; [facility] Patient counseling : discuss ed with patient importance of f/u re: increased risks of cervical cancer Last Documented On 1 4:34PM ; [facility] INFORMED CONSENT DISCUSSION: Colposcopy was discussed in detail including risk of post procedure bleeding. Patient is not to have intercourse for 2 weeks following the procedure. Patient expressed understanding of the above and consented to the procedure Last Documented On 1 4:14PM ; [facility] Patient counseling : STD pre vention. I discussed with the patient that condoms can reduce the chance of getting an STD but not eliminate it. Increased exposure from multiple sex partners also discussed Last Documented On 1 10:27AM ; [facility] Smoking cessation advised Last Documented On 1 10:36AM ; [facility] Patient Education: weight be aring exercise Last Documented On 0 3:56PM ; [facility] Medical Equipment - Implanted Devices Includes: Current and historical Devices No Medical Equipment Recorded Medications Includes: Current and historical Medications Current Medications (continue as prescribed) [facility] Iron 325 (65 Fe)MG Oral Tablet 08/23/2017 Provid er: Diagnosis: Last Documented On 08/23/2017 3:08PM By CHELO MEADOWS ; [facility] Past Medications on file Provera 10MG Oral Tablet 01/23/2019 - 03/03/2019 Provi yara: MARSHA CHAMORRO WHNP-BC Diagnosis: One tablet daily x 10 days Last Documented On 03/03/2019 3:35PM By CHELO MEADOWS ; [facility] Diflucan 150MG Oral Tablet 10/03/2018 - 01/23/2019 Pro vider: Diagnosis: Last Documented On 01/23/2019 8:15AM By LAVELLE SKY CMA ; [facility] Thalia 0.35 MG Tablet 04/20/2015 - 05/07/2019 Provider : JENNIFER ALEGRIA MD Diagnosis: One tablet daily Last Documented On 9 2:58PM By Claudia Padilla MA ; [facility] MedroxyPROGESTERone Acetate 150 MG/ML Suspension 01/28/2015 - 04/20/2015 Provider: JENNIFER ALEGRIA MD Diagnosis: i prefilled syringe for IM injection Last Documented On 04/20/2015 3:38PM By WERO MEADOWS ; [facility] Plan B 0.75 MG Tablet 01/21/2015 - 05/07/2019 Provider : JENNIFER ALEGRIA MD Diagnosis: i po evita then i po 12 hours later Last Documented On 9 2:58PM By Claudia Padilla MA ; [facility] Diflucan 150 MG OR TABS 11/05/2014 - 05/07/2019 Provid er: JENNIFER ALEGRIA MD Diagnosis: i po X 1 then repeat in 3 days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
--- OUTSIDE RECORDS SUMMARY | 2025-07-29 13:34 | XMS_ITS | Clinical Summary ---
Author Organization [facility] Address [address] [place] [address] Care Team Providers Care Aircraft Servicer Name Role Phone Desirae Wolf MD Primary Care Provider [phone] Allergies No known active allergies Medications ferrous [...] Encounters Date Type Department Care Team Description 07/22/2025 External Device Data [facility] Provider, Abstract 07/21/2025 Telephone [facility] Oncology and Hematology - [place] [address] [place] [id number] Edison Cortez MD labs for appt 07/15/2025 External Device Data [facility] Provider, Abstract 07/08/2025 External Device Data [facility] Provider, Abstract 07/07/2025 External Device Data [facility] Provider, Abstract 06/03/2025 External Device Data [facility] Provider, Abstract 06/02/2025 External Device Data [facility] Provider, Abstract [...] 157.5 cm (5' 2) 10/23/2023 2:24 PM ASSISTANT TECHNICIAN Body Mass Index 22.46 10/23/2023 2:24 PM ASSISTANT TECHNICIAN Plan of Treatment Upcoming Encounters Date Type Department Care Team (Late st Contact Info) Description 10/26/2025 3:30 PM ASSISTANT TECHNICIAN Office Visit [facility] Oncology and Hematology - [place] [address] [place] [address] Edison Cortez MD [address] [place] [address] Health Maintenance Due Date Last [...] 5 years 2019 BREAST CANCER SCREENING 12/16/2020 12/17/19, 12/17/2019, 10/16/2018, Additional history exists ZOSTER VACCINE (1 of 2) 2024 INFLUENZA VACCINE (#1) 2025 Insurance [employer] MED[employer] [place] Care Teams Aircraft Servicer Relationship Specialty Start Date End Date Desirae Wolf MD PCP - General Family Practice 05/08/17
--- OUTSIDE RECORDS SUMMARY | 2025-07-29 13:34 | XMS_ITS | Data Portability ---
Author Organization [facility] [employer], Main Office Address [address] [place] [address] Care Team Providers Care Returned Goods Receiving Clerk Name Role Phone DESIRAE ROLAND Primary Care Provider [phone] DESIRAE ROLAND Referring Provider JONH CARR Coat Checker KELLY ELIZALDE Rim Technician Assessment Encounter Date Assessment Date Assessment LastModified by Organization Details LastModified Time 09/18/2024 09/18/2024 Left lateral thigh seroma. Will perform ultrasound-vince ded drainage today here in the office for symptomatic control. Risks and benefits were discussed. Risks include infection and bleeding. Procedure dictated [email or web address] Not available 09/18/2024 13:53:07 03/04/2025 03/04/2025 50 minutes spent with the patient, started at 4.30pm till 5.20pm Her various consults reviewed, referrals provided [email or web address] Not available 03/04/2025 18:33:18 06/03/2025 06/03/2025 Addendum: 06/14/2025: Case sent 06/10/2025: LDL 117 [email or web address] Not available 06/14/2025 15:25:18 Plan of Treatment Reminders Order Date Submit Date Provider Last Modified By Organization Details Last Modified Time Details Appointments New Patient 30 2024 02:00P M Jessenia Hall NP Not available Not available Not available Follow Up 15 2024 02:00P M Jordi pinto MD Not available Not available Not available Follow Up 20 2024 04:00P Maria D Moffett , FLIGHT INFORMATION EXPEDITER Not available Not available Not available Lab lipid panel, serum 2024 025 [facility] (Lab), [address] [place], [address], 06/11/2025 09:22:53 CBC w/ auto diff 2024 025 [facility] (Lab), [address] [place], [address], 06/11/2025 09:22:54 TSH, serum or plasma 2024 025 [facility] (Lab), [address] [place], [address], 06/11/2025 09:22:55 CMP, serum or plasma 2024 025 [facility] (Lab), [address] [place], [address], 06/11/2025 09:22:54 lipid panel, serum [address] (Lab), [address] [place], [address], 03/12/2025 08:56:39 CBC w/ auto diff 2024 025 [facility] (Lab), [address] [place], [address], 03/05/2025 12:31:00 TSH, serum or plasma [address] (Lab), [address] [place], [address], 03/12/2025 08:56:49 CMP, serum or plasma 2024 025 [facility] (Lab), [address] [place], [address], 03/05/2025 12:31:00 CBC w/ auto diff [address] [place] [address] (Lab), [address] [place], [address], 04/07/2025 08:32:25 lipid panel, serum [address] [place] [address] (Lab), [address] [place], [address], 10/16/2024 07:42:13 CMP, serum or plasma [address] [place] [address] (Lab), [address] [place], [address], 04/07/2025 08:32:25 glycohem oglobin, total, blood [address] [place] [address] (Lab), [address] [place], [address], 10/16/2024 07:42:13 TSH, serum or plasma [address] [place] [address] (Lab), [address] [place], [address], 10/16/2024 07:42:12 T4, free, serum [address] [place] [address] (Lab), [address] [place], [address], 10/16/2024 07:42:12 iron + total iron-bin ding capacity (TIBC), serum [address] [place] [address] (Lab), [address] [place], [address], 10/16/2024 07:42:12 vitamin B12 + folate, serum or blood 2024 025 [facility] ([facility]), [address], [place], [address], 10/16/2024 07:42:13 Referral neurolog ical surgeon referral - Please call patient to schedule an appointm ent. Thank you. 2024 025 [facility] Neurosurgery, [address] [facility] [address], [place], [address], 06/10/2025 11:01:05 obstetri luana and gynecolo gist referral - Please call patient to schedule an appointm ent. Thank you. 2024 025 [facility], [address] [address], [place], [address], 06/04/2025 11:45:38 cardiolo gist referral - Please call patient to schedule an appointm ent. Thank you. 2024 025 [facility] MD, [address], [facility] [address], [place], [address], 06/10/2025 10:11:55 urologis t referral - Please call patient to schedule an appointm ent. Thank you. 2024 025 [facility] Medicine Urology Dept, [address] [place] [address], [address], 06/10/2025 10:45:31 neurolog ical surgeon referral - Please call patient to schedule an appointm ent. Thank you. 2024 025 delia Hoover MD, [facility] [address], [place], [address], 06/15/2025 15:27:04 endocrin ology referral - Please call patient to schedule an appointm ent. Thank you. 2024 025 [facility] Jonh Carr, [address] [facility] [address], [place], [address], 06/10/2025 10:50:38 neurolog ical surgeon referral - Please call patient to schedule an appointm ent. Thank you. 2024 025 armando [facility] Neurosurgery, [address] [facility] [address], [place], [address], 06/04/2025 09:55:48 obstetri luana and gynecolo gist referral - Please call patient to schedule an appointm ent. Thank you. 2024 025 armando Rico MD, [address] [facility] [address], [place], [address], 06/08/2025 14:09:36 cardiolo gist referral - Please call patient to schedule an appointm ent. Thank you. 2024 025 [facility] Cardiology, [address] [place], [address], 05/14/2025 17:37:07 urologis t referral - Please call patient to schedule an appointm ent. Thank you. 2024 [address] [facility] Medicine Urology Dept, [address] [place] [address], [address], 05/21/2025 12:45:43 neurolog ical surgeon referral - Please call patient to schedule an appointm ent. Thank you. 2024 025 armando Hoover MD, [facility] , [place], [address], 06/08/2025 14:09:37 endocrin ology referral - Please call patient to schedule an appointm ent. Thank you. 2024 025 [facility] Endocrinology Michaelil Reynoldchata, [address] [facility] [address], [place], [address], 06/04/2025 09:55:47 register ed dietitia n referral - Please call patient to schedule an appointm ent. Thank you. 2024 025 [address] [facility] Nutrition/ Batch Roller Operator, [address] [place], [address], 12/31/2024 09:07:13 psychiat rist referral - Please call patient to schedule an appointm ent. Thank you. 2024 025 [email or web address] Jill Norris Pmhnp, [address] [facility] [address], [place], [address], 11/26/2024 08:52:18 neurolog ist referral - Please call patient to schedule an appointm ent. Thank you. 2024 025 [place], [address] [facility] [address] [place], [address], 11/10/2024 12:20:03 Procedures upper endoscop y procedur e (EGD) (PROC) [address] [facility] (Pre-Screen), [address] [place], [address], 05/20/2025 16:31:00 colonosc opy screenin g (PROC) [address] [facility] (Pre-Screen), [address] [place], [address], 05/20/2025 16:30:22 upper endoscop y procedur e (EGD) (PROC) - Please call patient to schedule an appointm ent. Thank you. 2024 025 [email or web address] Becki Noyola MD, [address] [facility], [address], [place], [address], 06/04/2025 09:10:19 colonosc opy screenin g (PROC) - Please call patient to schedule an appointm ent. Thank you. 2024 025 [email or web address] Becki Noyola MD, [address] [facility], [facility] [address], [place], [address], 06/04/2025 09:11:47 Surgeries None recorded . Imaging MAMMO, screenin g, digital, bilatera l - Please call patient to schedule . [address] (Mammography), [address] [place], [address], 07/16/2025 16:33:05 MAMMO, screenin g, digital, bilatera l - Please call patient to schedule . [address] ([facility] Scheduling), [address] [place], [address], 04/07/2025 15:39:17 DEXA, axial skeleton - Please call patient to schedule . 2024 025 [facility] ([facility] Scheduling), [address] [place], [address], 03/09/2025 20:43:01 Medication Orders Golytely 236 gram-22. 74 gram-6.7 4 gram-5.8 6 gram oral solution 2024 025 [id number], [address] [facility], [place], [place], [id number], 05/20/2025 15:29:27 Patient TargetsNo targets recorded. Patient Instructions Encounter Date Encounter Id Patient Instructions Last Modified By Organization Details Last Modified Time 10/09/2024 [id number] Follow up in 3 months Obtain labs Tests: Referral: Dr. Gurwinder Dumont-neurology Jill Norris-mental health nurse practitioner Recommend: Tetanus vaccine Shingles vaccine [email or web address] Not available 10/09/2024 14:33:29 05/20/2025 [id number] GOLYTELY , REFLU X DIET Not available 05/20/2025 15:08:32 PT WITH GERD SX . NEED TO R/P PUD/ H. PYLORI . RECOMMEND AN EGD RISKS BENEFITS AND COMPLICATIONS WERE EXPLAINED TO PT . ( BLEEDING , PERFORATION , INFECTION , ) PT VERBALIZES UNDERSTANDING AND IS WILLING TO PROCEDE . PT NEEDS A SCREENING COLON . R/O POLYP . RECOMMEND A COLONOSOPY RISKS BENEFITS AND COMPLICATIONS WERE EXPLAINED TO PT . ( BLEEDING , PERFORATION , INFECTION , ) PT VERBALIZES UNDERSTANDING AND IS WILLING TO PROCEDE . [email or web address] Not available 05/20/2025 15:09:15 Reason for Referral Neurologist Referral for Domenico ropathy Please call patient to schedule an appointment. Thank you. Referring Physician: Yasemin Duran, Internal Medicine, Encounter Date: 10/09/2024 Psychiatrist Referral for De pressive disorder Please call patient to schedule an appointment. Thank you. Referring Physician: Yasemin Duran Internal Medicine, Encounter Date: 10/09/2024 Registered Dietitian Referra ji for Stricture of esophagus Please call patient to schedule an appointment. Thank you. Referring Physician: Yasemin Duran Internal Medicine, Encounter Date: 10/09/2024 Global Upstream Marketing Manager And Gynecologis t Referral for Well woman health examination Please call patient to schedule an appointment. Thank you. Referring Physician: Jordi Carias Internal Medicine, Encounter Date: 03/04/2025 Ict Trainer Referral for [facility] for cardiovascular system disease Please call patient to schedule an appointment. Thank you. Referring Physician: Jordi Carias Internal Medicine, Encounter Date: 03/04/2025 Neurological Surgeon Referra margy for Left foot drop Please call patient to schedule an appointment. Thank you. Referring Physician: Jordi Carias Internal Medicine, Encounter Date: 03/04/2025 Endocrinology Referral for H ypothyroidism Please call patient to schedule an appointment. Thank you. Referring Physician: Jordi Carias Internal Medicine, Encounter Date: 03/04/2025 Urologist Referral for Urina ry incontinence Please call patient to schedule an appointment. Thank you. Referring Physician: Jordi Carias Internal Medicine, Encounter Date: 03/04/2025 Neurological Surgeon Referra l for Spinal stenosis Please call patient to schedule an appointment. Thank you. Referring Physician: Jordi Carias Internal Medicine, Encounter Date: 03/04/2025 Global Upstream Marketing Manager And Gynecologis t Referral for Well woman health examination Please call patient to schedule an appointment. Thank you. Referring Physician: Jordi Carias Internal Medicine, Encounter Date: 06/03/2025 Neurological Surgeon Referra l for Left foot drop Please call patient to schedule an appointment. Thank you. Referring Physician: Jordi Carias Internal Medicine, Encounter Date: 06/03/2025 Endocrinology Referral for H ypothyroidism Please call patient to schedule an appointment. Thank you. Referring Physician: Jordi Carias Internal Medicine, Encounter Date: 06/03/2025 Urologist Referral for Urina ry incontinence Please call patient to schedule an appointment. Thank you. Referring Physician: Jordi Carias Internal Medicine, Encounter Date: 06/03/2025 Neurological Surgeon Referra l for Spinal stenosis Please call patient to schedule an appointment. Thank you. Referring Physician: Jordi Carias Internal Medicine, Encounter Date: 06/03/2025 Ict Trainer Referral for Sc reening for cardiovascular system disease Please call patient to schedule an appointment. Thank you. Referring Physician: Jordi Carias Internal Medicine, Encounter Date: 06/03/2025 Results Created Date Observation Date Name Description Value Unit Range Abnormal Flag Note LastModifiedBy Organization Detail LastModifiedTime 06/10/2006/11/2025 LIPID PANEL , STAND NAKUL cholesterol, total 199 mg/dL <200 normal Not Available [employer] [facility] [address] [place], [address], 06/11/2025 09:22:53 06/10/2006/11/2025 LIPID PANEL , STAND NAKUL HDL cholesterol 64 mg/dL > or = 50 normal Not Available [facility] [address] [place], [address], 06/11/2025 09:22:53 06/10/2006/11/2025 LIPID PANEL , STAND NAKUL triglyceride s 79 mg/dL <150 normal Not Available [facility] [place] [address] [place], [address], 06/11/2025 09:22:53 06/10/2006/11/2025 LIPID PANEL , STAND NAKUL LDL-choleste rol 117 mg/dL _(darion c) high Refer ence range : <100 Gregorio able range <100 mg/dL for prima ry preve ntion ; <70 mg/dL for patie nts with CHD or diabe tic patie nts with > or = 2 CHD risk facto rs. LDL-C is now calcu lated using the Angela devi-Hop kins francisco pires n, which is a valid ated novel samiro d akt obrien vargas r accur acy than the Fried petra equat ion in the estim ation of LDL-C . Angela devi SS et al. EVA. 2013; 310(1 9): 2061- 2068 (http ://ed ucati on.Carol Cabrales FatTail. com/f aq/FA Q164) Not Available [facility] [address] [place], [address], 06/11/2025 09:22:53 06/10/2006/11/2025 LIPID PANEL , STAND NAKUL chol/HDLC ratio 3.1 (calc ) <5.0 normal Not Available [facility] [address] [place], [address], 06/11/2025 09:22:53 06/10/2006/11/2025 LIPID PANEL , STAND NAKUL non HDL cholesterol 135 mg/dL _(darion c) <130 high For patie nts with diabe theodora plus 1 major ASCVD risk facto r, treat ing to a non-H DL-C goal of <100 mg/dL (LDL- C of <70 mg/dL ) is consi dered a thera peuti c optio n. Not Available [address], [address], 06/11/2025 09:22:53 06/10/2006/11/2025 COMPR EHENS HASMUKH METAB OLIC PANEL glucose 73 mg/dL 65-139 normal Non-f astin g refer ence inter bill Not Available [address], [address], 06/11/2025 09:22:54 06/10/2006/11/2025 COMPR EHENS HASMUKH METAB OLIC PANEL urea nitrogen (BUN) 22 mg/dL 7-25 normal Not Available [address], [address], 06/11/2025 09:22:54 06/10/2006/11/2025 COMPR EHENS HASMUKH METAB OLIC PANEL creatinine 0.83 mg/dL 0.50-1 .03 normal Not Available [address], [address], 06/11/2025 09:22:54 06/10/2006/11/2025 COMPR EHENS HASMUKH METAB OLIC PANEL eGFR 85 mL/mi n/1.7 3m2 > or = 60 normal Not Available [address], [address], 06/11/2025 09:22:54 06/10/2006/11/2025 COMPR EHENS HASMUKH METAB OLIC PANEL BUN/creatini ne ratio SEE NOTE: (calc ) 6-22 Not Repor jaz: BUN and Creat inine are withi n refer ence range . Not Available [address], [address], 06/11/2025 09:22:54 06/10/2006/11/2025 COMPR EHENS HASMUKH METAB OLIC PANEL sodium 139 mmol/ L 135-14 6 normal Not Available [address], [address], 06/11/2025 09:22:54 06/10/2006/11/2025 COMPR EHENS HASMUKH METAB OLIC PANEL potassium 4.5 mmol/ L 3.5-5. 3 normal Not Available [address], [address], 06/11/2025 09:22:54 06/10/2006/11/2025 COMPR EHENS HASMUKH METAB OLIC PANEL chloride 103 mmol/ L 98-110 normal Not Available [address], [address], 06/11/2025 09:22:54 06/10/2006/11/2025 COMPR EHENS HASMUKH METAB OLIC PANEL carbon dioxide 31 mmol/ L 20-32 normal Not Available [address], [address], 06/11/2025 09:22:54 06/10/2006/11/2025 COMPR EHENS HASMUKH METAB OLIC PANEL calcium 9.1 mg/dL 8.6-10 .4 normal Not Available [address], [address], 06/11/2025 09:22:54 06/10/2006/11/2025 COMPR EHENS HASMUKH METAB OLIC PANEL protein, total 6.8 g/dL 6.1-8. 1 normal Not Available [address], [address], 06/11/2025 09:22:54 06/10/2006/11/2025 COMPR EHENS HASMUKH METAB OLIC PANEL albumin 4.3 g/dL 3.6-5. 1 normal Not Available [address], [address], 06/11/2025 09:22:54 06/10/2006/11/2025 COMPR EHENS HASMUKH METAB OLIC PANEL globulin 2.5 g/dL_ (calc ) 1.9-3. 7 normal Not Available [address], [address], 06/11/2025 09:22:54 06/10/2006/11/2025 COMPR EHENS HASMUKH METAB OLIC PANEL albumin/glob ulin ratio 1.7 (calc ) 1.0-2. 5 normal Not Available [address], [address], 06/11/2025 09:22:54 06/10/2006/11/2025 COMPR EHENS HASMUKH METAB OLIC PANEL bilirubin, total 0.9 mg/dL 0.2-1. 2 normal Not Available [address], [address], 06/11/2025 09:22:54 06/10/2006/11/2025 COMPR EHENS HASMUKH METAB OLIC PANEL alkaline phosphatase 120 U/L 37-153 normal Not Available [address], [address], 06/11/2025 09:22:54 06/10/2006/11/2025 COMPR EHENS HASMUKH METAB OLIC PANEL AST 12 U/L 10-35 normal Not Available [address], [address], 06/11/2025 09:22:54 06/10/2006/11/2025 COMPR EHENS HASMUKH METAB OLIC PANEL ALT 10 U/L 6-29 normal Not Available [address], [address], 06/11/2025 09:22:54 06/10/2006/11/2025 CBC (INCL UDES DIFF/ PLT) white blood cell count 10.1 thous and/u L 3.8-10 .8 normal Not Available [address], [address], 06/11/2025 09:22:54 06/10/2006/11/2025 CBC (INCL UDES DIFF/ PLT) red blood cell count 4.34 cristopher on/uL 3.80-5 .10 normal Not Available [address], [address], 06/11/2025 09:22:54 06/10/2006/11/2025 CBC (INCL UDES DIFF/ PLT) hemoglobin 14.0 g/dL 11.7-1 5.5 normal Not Available [address], [address], 06/11/2025 09:22:54 06/10/2006/11/2025 CBC (INCL UDES DIFF/ PLT) hematocrit 42.8 % 35.0-4 5.0 normal Not Available [address], [address], 06/11/2025 09:22:54 06/10/2006/11/2025 CBC (INCL UDES DIFF/ PLT) MCV 98.6 fL 80.0-1 00.0 normal Not Available [address], [address], 06/11/2025 09:22:54 06/10/2006/11/2025 CBC (INCL UDES DIFF/ PLT) MCH 32.3 pg 27.0-3 3.0 normal Not Available [address], [address], 06/11/2025 09:22:54 06/10/2006/11/2025 CBC (INCL UDES DIFF/ PLT) MCHC 32.7 g/dL 32.0-3 6.0 normal For adult s, a sligh t decre ase in the calcu lated MCHC value (in the range of 30 to 32 g/dL) is most likel y not clini kady michellei marie t; mariya er, it shoul d be inter prete d with cauti on in [facility] n with other red cell tj eters and the patie nt's clini darion condi tion. Not Available [address], [address], 06/11/2025 09:22:54 06/10/2006/11/2025 CBC (INCL UDES DIFF/ PLT) RDW 12.3 % 11.0-1 5.0 normal Not Available [address], [address], 06/11/2025 09:22:54 06/10/2006/11/2025 CBC (INCL UDES DIFF/ PLT) platelet count 323 thous and/u L 140-40 0 normal Not Available [address], [address], 06/11/2025 09:22:54 06/10/2006/11/2025 CBC (INCL UDES DIFF/ PLT) MPV 9.7 fL 7.5-12 .5 normal Not Available [address], [address], 06/11/2025 09:22:54 06/10/2006/11/2025 CBC (INCL UDES DIFF/ PLT) absolute neutrophils 3838 cells /uL 1500-7 800 normal Not Available [facility] [address], [address], 06/11/2025 09:22:54 06/10/2006/11/2025 CBC (INCL UDES DIFF/ PLT) absolute lymphocytes 2293 cells /uL 850-39 00 normal Not Available [employer] [facility] [address], [address], 06/11/2025 09:22:54 06/10/2006/11/2025 CBC (INCL UDES DIFF/ PLT) absolute monocytes 566 cells /uL 200-95 0 normal Not Available [address], [address], 06/11/2025 09:22:54 06/10/2006/11/2025 CBC (INCL UDES DIFF/ PLT) absolute eosinophils 3333 cells /uL 15-500 high Not Available [address], [address], 06/11/2025 09:22:54 06/10/2006/11/2025 CBC (INCL UDES DIFF/ PLT) absolute basophils 71 cells /uL 0-200 normal Not Available [address], [address], 06/11/2025 09:22:54 06/10/2006/11/2025 CBC (INCL UDES DIFF/ PLT) neutrophils 38 % normal Not Available [facility] [address], [address], 06/11/2025 09:22:54 06/10/2006/11/2025 CBC (INCL UDES DIFF/ PLT) lymphocytes 22.7 % normal Not Available [facility] [address], [address], 06/11/2025 09:22:54 06/10/2006/11/2025 CBC (INCL UDES DIFF/ PLT) monocytes 5.6 % normal Not Available [facility] [address], [address], 06/11/2025 09:22:54 06/10/2006/11/2025 CBC (INCL UDES DIFF/ PLT) eosinophils 33.0 % normal Not Available [facility] [address], [address], 06/11/2025 09:22:54 06/10/20 25 06/11/2025 CBC (INCL UDES DIFF/ PLT) basophils 0.7 % normal Not Available [employer] [facility] [address] [place], [address], 06/11/2025 09:22:54 06/10/2006/11/2025 TSH W/REF GAIL TO FT4 TSH w/reflex to FT4 3.13 mIU/L normal Refer ence Range > or = 20 Years 0.40- 4.50 Pregn mann Range s First trime ster 0.26- 2.66 Secon d trime ster 0.55- 2.73 Third trime ster 0.43- 2.91 Not Available [facility] [address] [place], [address], 06/11/2025 09:22:55 03/09/2003/09/2025 DEXA, axial skele ton [facility] [address] [address] Patien t Name: LUKE CHACON Access ion #: [id number] Sex: F : 1974 5 Dictat ed By: Lorenzo ying Attend ing Physic chen: XIOMARA MENA [facility] Physic chen: KINDRA WU Exam Date: 2024 11:57 AM Exam Name: XR DEXA-H IPS PELVIS SPINE Admitt ing Diagno sis(es ): Examin ation: XR DEXA-H IPS PELVIS SPINE Clinic al Indica tion: Post-m enopau kirill. Compar kimberly: None. Techni que: Bone minera l densit y was evalua jaz. Findin gs: Lumbar spine (L1-L4 ): BMD: 0.917g /cm2 T-Scor e: -2.2 Z-Scor e: -1.5 Left Total Hip: BMD: 0.798 g/cm2 T-Scor e: -1.7 Z-Scor e: -1.0 Right Total Hip: BMD: 0.876 g/cm2 T-Scor e: -1.0 Z-Scor e: -0.3 The WHO fractu re risk assess ment (FRAX) was utiliz ed and the 10-yea r probab ility of a major osteop orotic fractu re in this patien t is estima jaz to be 10.0%- and 10-yea r probab ility of a hip fractu re in this patien t is estima jaz to be 1.4%. Impres bernard: Based on World Health Organi zation (WHO) criter ia, this patien t falls within the range of low bone densit y/oste openia at lumbar spine and left HIP level. Right hip falls within normal range. Relate d Inform ation: 1. The T-scor e is relati ve to peak bone mass in early adulth ood, while the Z-scor e is relati ve to indivi duals of the same age and sex. Page 1 [facility] [address] [address] Patien t Name: LUKE CHACON Access ion #: [id number] Sex: F : 1974 5 Dictat ed By: Lorenzo ying Attend ing Physic chen: [facility] Physic chen: KINDRA WU Exam Date: 2024 11:57 AM Exam Name: XR DEXA-H IPS PELVIS SPINE Admitt ing Diagno sis(es ): 2. The physician general internal medicine ationa l societ y for Clinic al Densit ometry recomm ends catego rizing the patien t accord ing to the lowest T-scor e from the total L-spin e, total hip and femora l neck utiliz ing the follow ing World Health Organi zation Criter ia: Normal range: T-scor e of - 1.0 or above. Low bone mass: T-scor e of less than-1 .0 but greate r than -2.5. Osteop orosis : T-scor e of -2.5 or below. 3. Depend ing on the above result s, clinic al manage ment may includ e calciu m and vitami n D supple mentat ion, weight bearin g exerci se and drug therap y, includ ing bispho sphona theodora, Evista or hormon al replac ement. Also consid er follow -up DEXA scan in 1-2 years if clinic ally indica jaz. Prefer ably this should be done at the same facili ty. More freque nt scanni ng may be requir ed in the settin g of drug-i nduced bone loss or metabo lic bone diseas e. Efraín onical ly Signed 025 19:41 Jerome Kenny onical ly Signed by: Lorenzo ying at 2024 19:41: 00 PM Page 2 INTERFACE [facility] (Imaging) [address] [place], [address], 03/09/2025 20:43:02 03/09/20 25 03/09/2025 imagi ng/di agnos tic resul t No observ ation record ed. [facility] [address] [place], [address], 03/09/2025 20:51:03 Result Notes Documentation Provider Name and Address Organization Details Recorded Time Dexa, Axial Skeleton : [facility] [address] [place] [address] Patient Name: LUKE CHACON Sex: F : 1975 Dictated By: Lorenzo Prabhakar Attending Physician: HARRY BACON Ordering Physician: JORDI CARIAS Exam Date: 03/09/2025 11:57 AM Exam Name: XR DEXA-HIPS PELVIS SPINE Admitting Diagnosis(es): Examination: XR DEXA-HIPS PELVIS SPINE Clinical Indication: Post-menopausal. Comparison: None. Technique: Bone mineral density was evaluated. Findings: Lumbar spine (L1-L4): BMD: 0.917g/cm2 T-Score: -2.2 Z-Score: -1.5 Left Total Hip: BMD: 0.798 g/cm2 T-Score: -1.7 Z-Score: -1.0 Right Total Hip: BMD: 0.876 g/cm2 T-Score: -1.0 Z-Score: -0.3 The WHO fracture risk assessment (FRAX) was utilized and the 10-year probability of a major osteoporotic fracture in this patient is estimated to be 10.0%- and 10-year probability of a hip fracture in this patient is estimated to be 1.4%. Impression: Based on World Health Organization (WHO) criteria, this patient falls within the range of low bone density/osteopenia at lumbar spine and left HIP level. Right hip falls within normal range. Related Information: 1. The T-score is relative to peak bone mass in early adulthood, while the Z-score is relative to individuals of the same age and sex. [address] [address] Patient Name: LUKE CHACON Sex: F : 1975 Dictated By: Lorenzo Prabhakar Attending Physician: JORDI CARIAS Ordering Physician: JORDI CARIAS Exam Date: 03/09/2025 11:57 AM Exam Name: XR DEXA-HIPS PELVIS SPINE Admitting Diagnosis(es): 2. The international society for Clinical Densitometry recommends categorizing the patient according to the lowest T-score from the total L-spine, total hip and femoral neck utilizing the following World Health Organization

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
--- OUTSIDE RECORDS SUMMARY | 2025-07-29 13:35 | XMS_ITS ---
Care Plan - [facility] Created on: July 29, 2025 ULKE CHACON : 1975 Sex: Female Author Organization [facility] Address [address] [place] [address] Phone Care Team Providers Care Director Of Medical Education Name Role Phone HARRISON AGUIRRE, TAE Primary Care Provider [phone] KRISTINA AGUIRRE, GITA C Unavailable [phone]
[2025-07-29 14:28] VITALS: BP 128/92; PULSE 72; RESP 18; TEMP 36.9; O2SAT 100
[2025-07-29] MEDS: LACTATED RINGERS 1,000 ML 150 ML IV CONT (14:44)
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
--- NOTE | 2025-07-29 15:32 | WPDANESEPPF ---
Anes - Initial Pre Proc Eval Procedure: Operation Date: 07/29/25 14:30 Proposed Procedures p EGD & Screening Colonoscopy - Santiago Lees MD Date/Time: 07/29/25 15:32 Surgeon: Santiago Lees MD Pre Op Diagnosis: Encounter for screening for malignant neoplasm of Patient Data Age: 50 Gender: F Height: 1.57 m Weight: 59.8 kg Last Vital Signs Temp 36.9 C 07/29/25 14:28 Pulse 72 07/29/25 14:28 Resp 18 07/29/25 14:28 BP 128/92 H 07/29/25 14:28 Pulse Ox 100 07/29/25 14:28 O2 Del Method Room Air 07/29/25 14:28 Allergies Allergy/AdvReac Type Severity Reaction Status Date / Time No Known Allergies Allergy Verified 07/29/25 14:27 Home Medications ?Medication ?Instructions ?Recorded ?Confirmed ?Type duloxetine 40 mg capsule,delayed 40 mg PO DAILY 01/05/25 07/20/25 History release levothyroxine 25 mcg tablet 25 mcg PO DAILY 01/05/25 07/20/25 History pantoprazole 40 mg tablet,delayed 40 mg PO DAILY 01/05/25 07/20/25 History release valacyclovir 500 mg tablet 500 mg PO DAILY PRN outbreaks 07/20/25 07/20/25 History Patient hx anesthesia problems: none Family hx anesthesia problems: none Results Review: All pre-operative results and documents have been reviewed as part of the pre-operative evaluation. 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 Dysuria Encounter for screening examination for sexually transmitted disease Screening mammogram, encounter for Thyroid nodule Depression Anxiety Anemia infusions done Asthma Surgical History Surgical History H/O pelvic surgery History of throat surgery 2 vocal cord surgeries H/O splenectomy History of surgery on lower extremity Seroma drained on leg History of endometrial ablation 07/03/19 hscope d&c and ablation History of laparoscopy 07/03/19 pelvic pain History of tonsillectomy H/O LEEP 199710/29/13 Family History Family History Mother Hypothyroidism Intracranial aneurysm Daughter Hypothyroidism Pulmonic valve stenosis Social History Social History Smoking status: Former smoker Tobacco type: cigarettes Second hand tobacco smoke exposure: No Smoking end date: 10/18/22 Alcohol intake: current Drinks per week: 1 Alcohol use details: very rarely Substance use: never Substance use type: does not use Do You Feel Safe in your Home?: Yes Lack of Transportation: No Lack of Food: Never True Current Housing: I Have Housing Concerned About Future Housing: No Difficulty Paying Gas/Electric Bills: No Difficulty Paying for Meds: No Currently Unemployed: No Education: High School Diploma/GED Difficulty w/ Childcare or Family Care: No Living arrangements: alone Additional living arrangements comments: lives with daughter Occupation/Education: occupation Additional occupation/education comments: 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 Gender identity (if verbalized by the patient): Female Sexual Orientation (if Verbalized by the Patient): Straight or Heterosexual Spiritual care concerns: No Anes - Eval Final PreProcedure Day of Procedure 07/29/25 15:32 Patient weight: normal Heart: regular rate and rhythm Lungs: clear to auscultation Airway: Mallampati scale class II and other (prolonged intubation '24, glottic stenosis) Neurological: alert and oriented Last oral intake: >/= 8 hours ASA classification: III Emergent: no Anesthetic plan: proceed Anesthesia type and monitoring: general GIVS and standard monitoring Results Review: All pre-operative results and documents have been reviewed as part of the pre-operative evaluation. Informed Consent: The patient's anesthetic plan and its attendant risks and benefits were discussed with the patient/family/POA. Questions were solicited and answers provided to the satisfaction of the patient/family/POA.
[2025-07-29] MEDS: SIMETHICONE ORAL SUSPENSION 20 MG/0.3 ML 30 ML BOTTLE 0.6 ML IRRIGATION (15:43)
--- NOTE | 2025-07-29 15:54 | S_PTH ---
PATIENT: Jennifer Lynch LOC: [facility]#:[id number] AGE/SX: 50/F ROOM: RE07/29/[address]: Santiago Lees MD : 1975 BED: DIS: 07/29/2025 SPEC #: [id number] RECD: 07/30/25 08:47 STATUS: ANGELO RETayo #: [id number] MONIKA: 07/29/25 15:[address]: Santiago Lees DEPT: [facility] Surgical RECD BY: Brooke Boo ENTERED: 07/30/25 08:48 SP TYPE: Surgical OTHR DR: Agus CariasMD Tissues: A - Gastric Biopsy B - Gastric Biopsy Procedures: Hematoxylin and Eosin Stain Gross and Microscopic Level 4
--- NOTE | 2025-07-29 15:56 | SUR.OPER ---
EGD end time: 1547, Colonoscopy 1551
[2025-07-29 16:05] VITALS: BP 115/77; PULSE 78; RESP 18; O2SAT 100
[2025-07-29 16:15] VITALS: BP 113/77; PULSE 78; RESP 18; O2SAT 100
[2025-07-29 16:25] VITALS: BP 126/74; PULSE 74; RESP 18; O2SAT 100
== END 2025-07-29 16:40 | disposition home or self-care (01) ==
PROVIDERS: PCP Internal Medicine; Referring Provider Internal Medicine; Visit Provider Internal Medicine Gastroenterology
PROC: 0DJ08ZZ Inspection of Upper Intestinal Tract, Via Natural or Artificial Opening Endoscopic (ICD-10-PCS; CPT 45378; principal; 2025-07-29 14:30)
DX: Z12.11 Encounter for screening for malignant neoplasm of colon (principal); K64.8 Other hemorrhoids; K21.9 Gastro-esophageal reflux disease without esophagitis; K29.50 Unspecified chronic gastritis without bleeding; D64.9 Anemia, unspecified; J45.909 Unspecified asthma, uncomplicated; F90.9 Attention-deficit hyperactivity disorder, unspecified type; F32.A Depression, unspecified; F41.9 Anxiety disorder, unspecified; Z98.890 Other specified postprocedural states; Z90.81 Acquired absence of spleen; Z98.891 History of uterine scar from previous surgery; Z87.891 Personal history of nicotine dependence
CPT/HCPCS: 43239; 45378; 88305; J2003; J2704; J7120

== ENCOUNTER 2025-08-28 14:54 | Outpatient (CLI) | payer OTHER, SELFPAY ==
[2025-08-28 15:59] LABS: Hematocrit 38.9 % (37.0-47.0); Hemoglobin 12.9 g/dL (12.0-15.0); Mean Corpuscular HGB Conc 33.2 g/dl (32-36); Mean Corpuscular Hemoglobin 31.4 pg (26-34); Mean Corpuscular Volume 94.6 fl (80-100); Platelet Count Result 411 k/mm3 (150-375); Red Blood Count 4.11 M/mm3 (4.2-5.4); White Blood Count 8.0 K/mm3 (4.5-10.0)
[2025-08-28 16:24] LABS: Alanine Aminotransferase 16 U/L (6-35); Albumin Level 3.5 g/dL (3.5-5.1); Alkaline Phosphatase 97 U/L (38-126); Anion Gap 2 mmol/L (4-12); Aspartate Amino Transferase 17 U/L (14-36); Bilirubin,Total 0.7 mg/dL (0.2-1.3); Blood Urea Nitrogen 17 mg/dL (7-17); Calcium 8.2 mg/dL (8.4-10.2); Carbon Dioxide 31 mmol/L (22-30); Chloride 102 mmol/L (98-107); Estimated Glomerular Filt Rate > 60; Glucose 97 mg/dL (65-110); Potassium 3.9 mmol/L (3.4-5.0); Sodium 135 mmol/L (137-145); Total Protein 6.5 g/dL (6.3-8.2)
[2025-08-28 17:42] LABS: Toxigenic C. Diff POSITIVE (NEGATIVE)
[2025-08-28 18:19] LABS: Clostridium Difficile GDH Ag Positive (Negative)
[2025-08-28 18:20] LABS: CDiff Toxin A&B Ag Positive (Negative)
== END 2025-08-28 14:55 | disposition home or self-care (01) ==
PROVIDERS: PCP Internal Medicine; Visit Provider Nurse Practitioner Family
DX: R19.7 Diarrhea, unspecified (principal)
CPT/HCPCS: 36415; 80053; 85027; 87045; 87046; 87177; 87324; 87427; 87449; 87493